=== PATIENT | male | born 1965 | race Caucasian/White ===

== ENCOUNTER 2021-06-23 22:51 | Inpatient (IN) | payer MEDICARE, OTHER ==
[2021-06-23 22:59] LABS: Glucose,Whole Blood 457 mg/dL (75-99)
[2021-06-23] MEDS ORDERED: SODIUM CHLORIDE 0.9% 1,000 ML IV STA (23:00)
--- NOTE | 2021-06-23 23:06 | ED ---
Recheck HPI - General Stated Complaint: sepsis, nstemi Time Seen by Provider: 06/23/21 22:57 Source: RN notes reviewed, old records reviewed Mode of arrival: EMS Limitations: altered mental status - History of Present Illness Initial Comments: this is a 56-year-old male who is a poor shistorian and presents to ER for multiple medicate medical issues. Patient was transferred to us from an outside facility for diabetic ketoacidosis non-ST elevated MS and pneumonia. Again bessie ent cannot provide history history obtained from EMS as well as prior physician MD Complaint: abnormal lab -: unknown Returns Today for: Called Because of Abnormal Lab/Test, persistent/worsening pain related to initial visit Symptoms Since Prior Visit: no new symptoms Associated Symptoms: none Treatments Prior to Arrival: Given Pain Meds on - Related Data Home Medications Medication Instructions Recorded Confirmed Aspirin EC [Ecotrin Low Dose] 81 mg PO DAILY 06/23/21 06/23/21 Cholecalciferol [Vitamin D3 (125 125 mcg PO DAILY 06/23/21 06/23/21 Mcg = 5000 Iu)] Ezetimibe [Zetia] 10 mg PO DAILY 06/23/21 06/23/21 HYDROcodone/APAP 7.5-325MG [[place] 1 tab PO Q6H PRN 06/23/21 06/23/21 7.5-325] Ibuprofen [Motrin] 800 mg PO Q8H PRN 06/23/21 06/23/21 Insulin Aspart 20 - 30 units SQ TID-W/MEALS MDD 06/23/21 06/23/21 90UNITS Insulin Glargine [Lantus Vial] 22 unit SQ HS 06/23/21 06/23/21 Metoprolol Succinate (ER) [Toprol 50 mg PO DAILY PRN 06/23/21 06/23/21 Xl] Rosuvastatin Calcium [Crestor] 40 mg PO DAILY 06/23/21 06/24/21 Allergies Allergy/AdvReac Type Severity Reaction Status Date / Time No Known Allergies Allergy Verified 06/23/21 23:56 Review of Systems ROS Statement: Those systems with pertinent positive or pertinent negative responses have been documented in the HPI. ROS Other: All systems not noted in ROS Statement are negative. General Exam Limitations: altered mental status General appearance: alert, lethargic Head exam: Present: atraumatic, normocephalic, normal inspection Eye exam: Present: normal appearance, PERRL, EOMI. Absent: scleral icterus, conjunctival injection, periorbital swelling ENT exam: Present: normal exam, mucous membranes moist Neck exam: Present: normal inspection. Absent: tenderness, meningismus, lymphadenopathy Respiratory exam: Present: normal lung sounds bilaterally. Absent: respiratory distress, wheezes, rales, rhonchi, stridor Cardiovascular Exam: Present: regular rate, normal rhythm, normal heart sounds. Absent: systolic murmur, diastolic murmur, rubs, gallop, clicks GI/Abdominal exam: Present: soft, normal bowel sounds. Absent: distended, tenderness, guarding, rebound, rigid Extremities exam: Present: normal inspection, full ROM, normal capillary refill. Absent: tenderness, pedal edema, joint swelling, calf tenderness Back exam: Present: normal inspection Neurological exam: Present: alert, oriented X3, CN II-XII intact Psychiatric exam: Present: normal affect, normal mood Skin exam: Present: warm, dry, intact, normal color. Absent: rash Course Vital Signs 06/23/21 06/24/21 22:57 00:00 Temperature 99.1 F Pulse Rate 90 94 Respiratory 18 19 Rate Blood Pressure 134/65 136/70 O2 Sat by Pulse 98 96 Oximetry - Reevaluation(s) Reevaluation #1: 06/24/21 01:23 record is reviewed 06/24/21 01:24 transferring paperwork is also been reviewed Reevaluation #2: 06/24/21 01:24 patient showing no improvement mental status here in the ER Reevaluation #3: 06/24/21 01:24 spoke with patient regarding findings questions answered answered - Consultations Consultation #1: spoke with [facility] who agreed to admit the patient Medical Decision Making - Medical Decision Making 56 male accepted in transfer for multiple issues surrounding DKA elevated troponin pneumonitis on x-ray. Patient be admitted for antibiotics evaluation and further evaluation of DKA and treatment blood sugar. Monitoring of altered mental status - Lab Data Result diagrams: 06/23/21 23:26 06/23/21 23:26 Lab Results 06/23/21 06/23/21 06/23/21 Range/Units 22:58 23:26 23:26 WBC (3.8-10.6) k/uL RBC (4.30-5.90) m/uL Hgb (13.0-17.5) gm/dL Hct (39.0-53.0) % MCV (80.0-100.0) fL MCH (25.0-35.0) pg MCHC (31.0-37.0) g/dL RDW (11.5-15.5) % Plt Count (150-450) k/uL MPV Neutrophils % % Lymphocytes % % Monocytes % % Eosinophils % % Basophils % % Neutrophils # (1.3-7.7) k/uL Lymphocytes # (1.0-4.8) k/uL Monocytes # (0-1.0) k/uL Eosinophils # (0-0.7) k/uL Basophils # (0-0.2) k/uL Hypochromasia PT (9.0-12.0) sec INR (<1.2) APTT (22.0-30.0) sec VBG pH (7.31-7.41) VBG pCO2 (37-51) mmHg VBG HCO3 (24-28) mmol/L Sodium (137-145) mmol/L Potassium (3.5-5.1) mmol/L Chloride (98-107) mmol/L Carbon Dioxide (22-30) mmol/L Anion Gap mmol/L BUN (9-20) mg/dL Creatinine (0.66-1.25) mg/dL Est GFR (CKD-EPI)AfAm (>60 ml/min/1.73 sqM) Est GFR (CKD-EPI)NonAf (>60 ml/min/1.73 sqM) Glucose (74-99) mg/dL POC Glucose (mg/dL) 457 H (75-99) mg/dL POC Glu New Car Inspector ID Kallie Dubon Plasma Lactic Acid Brooks 1.6 (0.7-2.0) mmol/L Calcium (8.4-10.2) mg/dL Phosphorus (2.5-4.5) mg/dL Magnesium (1.6-2.3) mg/dL Total Bilirubin (0.2-1.3) mg/dL AST (17-59) U/L ALT (4-49) U/L Alkaline Phosphatase (38-126) U/L Ammonia 12 (<30) umol/L Troponin I (0.000-0.034) ng/mL NT-Pro-B Natriuret Pep pg/mL Total Protein (6.3-8.2) g/dL Albumin (3.5-5.0) g/dL TSH (0.465-4.680) mIU/L Salicylates mg/dL Urine Opiates Screen Not Detected (NotDetected) Ur Oxycodone Screen Not Detected (NotDetected) Urine Methadone Screen Not Detected (NotDetected) Ur Propoxyphene Screen Not Detected (NotDetected) Acetaminophen ug/mL Ur Barbiturates Screen Not Detected (NotDetected) U Tricyclic Antidepress Not Detected (NotDetected) Ur Phencyclidine Scrn Not Detected (NotDetected) Ur Amphetamines Screen Not Detected (NotDetected) U Methamphetamines Scrn Not Detected (NotDetected) U Benzodiazepines Scrn Not Detected (NotDetected) Urine Cocaine Screen Not Detected (NotDetected) U Marijuana (THC) Screen Not Detected (NotDetected) Serum Alcohol mg/dL Acetone, Qual (Negative) 06/23/21 06/23/21 06/23/21 Range/Units 23:26 23:26 23:26 WBC 16.2 H (3.8-10.6) k/uL RBC 3.68 L (4.30-5.90) m/uL Hgb 11.5 L (13.0-17.5) gm/dL Hct 36.7 L (39.0-53.0) % MCV 99.7 (80.0-100.0) fL MCH 31.2 (25.0-35.0) pg MCHC 31.3 (31.0-37.0) g/dL RDW 13.5 (11.5-15.5) % Plt Count 217 (150-450) k/uL MPV 8.9 Neutrophils % 85 % Lymphocytes % 7 % Monocytes % 7 % Eosinophils % 0 % Basophils % 0 % Neutrophils # 13.8 H (1.3-7.7) k/uL Lymphocytes # 1.1 (1.0-4.8) k/uL Monocytes # 1.1 H (0-1.0) k/uL Eosinophils # 0.0 (0-0.7) k/uL Basophils # 0.0 (0-0.2) k/uL Hypochromasia Slight PT (9.0-12.0) sec INR (<1.2) APTT (22.0-30.0) sec VBG pH 7.39 (7.31-7.41) VBG pCO2 20 L (37-51) mmHg VBG HCO3 12 L (24-28) mmol/L Sodium 137 (137-145) mmol/L Potassium 5.2 H (3.5-5.1) mmol/L Chloride 106 (98-107) mmol/L Carbon Dioxide 9 L* (22-30) mmol/L Anion Gap 22 mmol/L BUN 30 H (9-20) mg/dL Creatinine 1.20 (0.66-1.25) mg/dL Est GFR (CKD-EPI)AfAm 78 (>60 ml/min/1.73 sqM) Est GFR (CKD-EPI)NonAf 68 (>60 ml/min/1.73 sqM) Glucose 459 H (74-99) mg/dL POC Glucose (mg/dL) (75-99) mg/dL POC Glu New Car Inspector ID Plasma Lactic Acid Brooks (0.7-2.0) mmol/L Calcium 9.0 (8.4-10.2) mg/dL Phosphorus 3.9 (2.5-4.5) mg/dL Magnesium 1.9 (1.6-2.3) mg/dL Total Bilirubin 1.1 (0.2-1.3) mg/dL AST 69 H (17-59) U/L ALT 80 H (4-49) U/L Alkaline Phosphatase 73 (38-126) U/L Ammonia (<30) umol/L Troponin I (0.000-0.034) ng/mL NT-Pro-B Natriuret Pep pg/mL Total Protein 7.0 (6.3-8.2) g/dL Albumin 3.9 (3.5-5.0) g/dL TSH 0.235 L (0.465-4.680) mIU/L Salicylates 1.5 mg/dL Urine Opiates Screen (NotDetected) Ur Oxycodone Screen (NotDetected) Urine Methadone Screen (NotDetected) Ur Propoxyphene Screen (NotDetected) Acetaminophen <10.0 ug/mL Ur Barbiturates Screen (NotDetected) U Tricyclic Antidepress (NotDetected) Ur Phencyclidine Scrn (NotDetected) Ur Amphetamines Screen (NotDetected) U Methamphetamines Scrn (NotDetected) U Benzodiazepines Scrn (NotDetected) Urine Cocaine Screen (NotDetected) U Marijuana (THC) Screen (NotDetected) Serum Alcohol <10 mg/dL Acetone, Qual Positive (Negative) 06/23/21 06/23/21 06/23/21 Range/Units 23:26 23:26 23:26 WBC (3.8-10.6) k/uL RBC (4.30-5.90) m/uL Hgb (13.0-17.5) gm/dL Hct (39.0-53.0) % MCV (80.0-100.0) fL MCH (25.0-35.0) pg MCHC (31.0-37.0) g/dL RDW (11.5-15.5) % Plt Count (150-450) k/uL MPV Neutrophils % % Lymphocytes % % Monocytes % % Eosinophils % % Basophils % % Neutrophils # (1.3-7.7) k/uL Lymphocytes # (1.0-4.8) k/uL Monocytes # (0-1.0) k/uL Eosinophils # (0-0.7) k/uL Basophils # (0-0.2) k/uL Hypochromasia PT 12.1 H (9.0-12.0) sec INR 1.1 (<1.2) APTT 23.7 (22.0-30.0) sec VBG pH (7.31-7.41) VBG pCO2 (37-51) mmHg VBG HCO3 (24-28) mmol/L Sodium (137-145) mmol/L Potassium (3.5-5.1) mmol/L Chloride (98-107) mmol/L Carbon Dioxide (22-30) mmol/L Anion Gap mmol/L BUN (9-20) mg/dL Creatinine (0.66-1.25) mg/dL Est GFR (CKD-EPI)AfAm (>60 ml/min/1.73 sqM) Est GFR (CKD-EPI)NonAf (>60 ml/min/1.73 sqM) Glucose (74-99) mg/dL POC Glucose (mg/dL) (75-99) mg/dL POC Glu New Car Inspector ID Plasma Lactic Acid Brooks (0.7-2.0) mmol/L Calcium (8.4-10.2) mg/dL Phosphorus (2.5-4.5) mg/dL Magnesium (1.6-2.3) mg/dL Total Bilirubin (0.2-1.3) mg/dL AST (17-59) U/L ALT (4-49) U/L Alkaline Phosphatase (38-126) U/L Ammonia (<30) umol/L Troponin I 0.143 H* (0.000-0.034) ng/mL NT-Pro-B Natriuret Pep 1990 pg/mL Total Protein (6.3-8.2) g/dL Albumin (3.5-5.0) g/dL TSH (0.465-4.680) mIU/L Salicylates mg/dL Urine Opiates Screen (NotDetected) Ur Oxycodone Screen (NotDetected) Urine Methadone Screen (NotDetected) Ur Propoxyphene Screen (NotDetected) Acetaminophen ug/mL Ur Barbiturates Screen (NotDetected) U Tricyclic Antidepress (NotDetected) Ur Phencyclidine Scrn (NotDetected) Ur Amphetamines Screen (NotDetected) U Methamphetamines Scrn (NotDetected) U Benzodiazepines Scrn (NotDetected) Urine Cocaine Screen (NotDetected) U Marijuana (THC) Screen (NotDetected) Serum Alcohol mg/dL Acetone, Qual (Negative) - EKG Data -: EKG Interpreted by Me (EKG shows sinus 79 IN 108 QRS 86 QTc 433) Critical Care Time Critical Care Time: Yes Total Critical Care Time: 31 Disposition Clinical Impression: Altered mental status, Delirium due to general medical condition, DKA (diabetic ketoacidosis), NSTEMI (non-ST elevated myocardial infarction), Leukocytosis, Pneumonitis Disposition: ADMITTED IP TO THIS HOSP Condition: Serious Is patient prescribed a controlled substance at d/c from ED?: No Referrals: None,Stated [Primary Care Provider] - 1-2 days
[2021-06-23 23:52] LABS: Basophils % (A) 0 %; Eosinophils % (A) 0 %; HCT 36.7 % (39.0-53.0); HGB 11.5 gm/dL (13.0-17.5); Hypochromasia Slight; Lymphocytes # (A) 1.1 k/uL (1.0-4.8); Lymphocytes % (A) 7 %; MCH 31.2 pg (25.0-35.0); MCHC 31.3 g/dL (31.0-37.0); MCV 99.7 fL (80.0-100.0); Mean Platelet Volume 8.9; Monocytes # (A) 1.1 k/uL (0-1.0); Monocytes % (A) 7 %; Neutrophils # (A) 13.8 k/uL (1.3-7.7); Neutrophils % (A) 85 %; Platelet Count 217 k/uL (150-450); RBC 3.68 m/uL (4.30-5.90); RDW 13.5 % (11.5-15.5); WBC 16.2 k/uL (3.8-10.6)
[2021-06-23 23:54] LABS: VBG PH 7.39 (7.31-7.41)
[2021-06-24 00:03] LABS: INR 1.1 (<1.2); Partial Thromboplastin Time 23.7 sec (22.0-30.0); Prothrombin Time 12.1 sec (9.0-12.0)
[2021-06-24 00:11] LABS: Amphetamine Screen,Urine Not Detected (NotDetected); Barbiturate Screen,Urine Not Detected (NotDetected); Benzodiazepines Screen,Urine Not Detected (NotDetected); Cocaine Screen,Urine Not Detected (NotDetected); Methadone Screen, Urine Not Detected (NotDetected); Opiate Screen,Urine Not Detected (NotDetected); Oxycodone Screen, Urine Not Detected (NotDetected); Phencyclidine Screen,Urine Not Detected (NotDetected); Tricyclic Antidepressant,Urine Not Detected (NotDetected); Urn Cannabinoid Scrn Not Detected (NotDetected)
[2021-06-24 00:36] LABS: Lactic Acid, Venous 1.6 mmol/L (0.7-2.0)
[2021-06-24 00:39] LABS: ALT 80 U/L (4-49); AST 69 U/L (17-59); Acetaminophen <10.0 ug/mL; African American GFR (CKD) 78 (>60 ml/min/1.73 sqM); Albumin 3.9 g/dL (3.5-5.0); Alcohol <10 mg/dL; Alkaline Phosphatase 73 U/L (38-126); Anion Gap 22 mmol/L; Blood Urea Nitrogen 30 mg/dL (9-20); Chloride 106 mmol/L (98-107); Glucose 459 mg/dL (74-99); Magnesium 1.9 mg/dL (1.6-2.3); Non-African American GFR(CKD) 68 (>60 ml/min/1.73 sqM); Phosphorus 3.9 mg/dL (2.5-4.5); Potassium 5.2 mmol/L (3.5-5.1); Salicylate 1.5 mg/dL; Sodium 137 mmol/L (137-145); Total Bilirubin 1.1 mg/dL (0.2-1.3)
[2021-06-24 00:45] LABS: Carbon Dioxide 9 mmol/L (22-30)
[2021-06-24] MEDS ORDERED: NALOXONE 0.4 MG/ML 1 ML VIAL IV PRN (01:18)
[2021-06-24] MEDS ORDERED: SODIUM CHLORIDE 0.9% 1,000 ML IV ONE (01:18)
[2021-06-24] MEDS ORDERED: LORazepam 2 MG/ML INJ IV PRN (01:18)
[2021-06-24] MEDS ORDERED: MORPHINE SULFATE 4 MG/ML SYRINGE IV PRN (01:18)
[2021-06-24] MEDS ORDERED: INSULIN REGULAR 100 UNIT in SODIUM CHLORIDE 0.9% 100 ML IV SCH (01:30)
--- NOTE | 2021-06-24 02:34 | CT ---
EXAMINATION TYPE: CT brain wo con DATE OF EXAM: 06/24/2021 COMPARISON: None HISTORY: ams CT DLP: 1214.4 mGycm Automated exposure control for dose reduction was used. Images obtained of the brain without contrast. There is mild cerebral atrophy. There is no mass effect or midline shift. There is no sign of intracr anial hemorrhage. Calvarium is intact. IMPRESSION: Mild atrophy. No acute intracranial abnormality. Mild ethmoid and frontal sinusitis noted.
[2021-06-24 03:26] LABS: Glucose,Whole Blood 371 mg/dL (75-99)
[2021-06-24] MEDS: SODIUM CHLORIDE 0.9% 1,000 ML IV SCH ×3 (04:04→12:37)
[2021-06-24 04:33] LABS: Glucose,Whole Blood 318 mg/dL (75-99)
[2021-06-24 05:24] LABS: Glucose,Whole Blood 302 mg/dL (75-99)
[2021-06-24 06:24] LABS: Glucose,Whole Blood 302 mg/dL (75-99)
[2021-06-24 07:50] LABS: Glucose,Whole Blood 240 mg/dL (75-99)
[2021-06-24 08:58] LABS: African American GFR (CKD) >90 (>60 ml/min/1.73 sqM); Anion Gap 13 mmol/L; Blood Urea Nitrogen 27 mg/dL (9-20); Carbon Dioxide 11 mmol/L (22-30); Chloride 117 mmol/L (98-107); Glucose 281 mg/dL (74-99); Non-African American GFR(CKD) 84 (>60 ml/min/1.73 sqM); Phosphorus 2.7 mg/dL (2.5-4.5); Potassium 4.9 mmol/L (3.5-5.1); Sodium 141 mmol/L (137-145)
[2021-06-24] MEDS ORDERED: AZITHROMYCIN 500 MG in SODIUM CHLORIDE 0.9% 250 ML IVPB SCH (09:00)
[2021-06-24] MEDS ORDERED: D5-0.45% NACL WITH KCL 20MEQ/L 1,000 ML IV SCH (09:00)
[2021-06-24] MEDS: PANTOPRAZOLE 40 MG/10 ML VIAL IV SCH (09:14)
[2021-06-24 09:30] LABS: Glucose,Whole Blood 229 mg/dL (75-99)
--- NOTE | 2021-06-24 10:11 | P.HPIM ---
History of Present Illness Patient is a 56-year-old male was transferred from a outside hospital as patient doesn't they're unresponsive. Patient is found to be not diverticulitis doses. Patient urine drug screen was negative and alcohol levels are negative. Patient was started on IV fluids were started on DKA protocol patient was in anion gap is 13. Patient the slowly became more responsive and I valid the patient patient although is alert oriented 1 able to answer my questions he thinks that it's 2001, able to tell me his name. Patient is not sure why he is in the hospital. Patient was severely encephalopathic when he came in. CT of the head did not show any acute abnormality. Patient also had mildly elevated troponins of 0.147 0.109 with mildly elevated liver enzymes. Patient is on insulin for diabetes mellitus. TSH is bit low at 0.235 patient does have leukocytosis. Patient initially was thought to have pneumonia although chest x-ray did not show any infiltrate. I will obtain a pro-calcitonin wasn't a do not believe patient will need antibiotics patient doesn't have any cough. REVIEW OF SYSTEMS: CONSTITUTIONAL: No fever, no malaise, no fatigue. HEENT: No recent visual problems or hearing problems. Denied any sore throat. CARDIOVASCULAR: No chest pain, orthopnea, PND, no palpitations, no syncope. PULMONARY: No shortness of breath, no cough, no hemoptysis. GASTROINTESTINAL: No diarrhea, no nausea, no vomiting, no abdominal pain. NEUROLOGICAL: No headaches, no weakness, no numbness. HEMATOLOGICAL: Denies any bleeding or petechiae. GENITOURINARY: Denies any burning micturition, frequency, or urgency. MUSCULOSKELETAL/RHEUMATOLOGICAL: Denies any joint pain, swelling, or any muscle pain. ENDOCRINE: Denies any polyuria or polydipsia. The rest of the 14-point review of systems is negative. PHYSICAL EXAMINATION: GENERAL: The patient is alert and oriented x1, not in any acute distress. Well developed, well nourished. HEENT: Pupils are round and equally reacting to light. EOMI. No scleral icterus. No conjunctival pallor. Normocephalic, atraumatic. No pharyngeal erythema. No thyromegaly. CARDIOVASCULAR: S1 and S2 present. No murmurs, rubs, or gallops. PULMONARY: Chest is clear to auscultation, no wheezing or crackles. ABDOMEN: Soft, nontender, nondistended, normoactive bowel sounds. No palpable organomegaly. MUSCULOSKELETAL: No joint swelling or deformity. EXTREMITIES: No cyanosis, clubbing, or pedal edema. NEUROLOGICAL: Gross neurological examination did not reveal any focal deficits. SKIN: No rashes. Assessment and plan -Acute a different secondary to diabetic ketoacidosis this is improving ketoacidosis improved -Diverticular acidosis patient is insulin-dependent unsure whether elevated the patient is type I-type II. Patient's anion gap almost resolved patient bicarbonate is still low because of hyperchloremia. Patient will be transitioned to subcutaneous insulin patient will be given a dose of long-acting insulin followed by disc herniation of IV insulin an hour later patient will be started on pre-meal insulin as well as sliding scale patient can need to an hour after transitioning to subcutaneous insulin. Patient will be transitioned to half-normal saline. -Metabolic acidosis: Secondary to lactic acidosis, which improved which is again secondary to intravascular depletion and dehydration, diabetic ketoacidosis, hyperchloremia secondary to IV fluids. -Mildly elevated troponins secondary to diabetic ketoacidosis patient doesn't have any chest pain patient's EKG is within normal limits -Acute renal failure secondary to DKA dehydration -low TSH will obtain T4 levels -leukocytosis secondary to diabetic ketoacidosis 7 hypertension is really not on any medication patient is only on when necessary medication for hypertension which I will discontinue at this time DVT prophylaxis: Lovenox Past Medical History Past Medical History: Unable to Obtain History of Any Multi-Drug Resistant Organisms: Unobtainable Past Surgical History: Unable to Obtain Past Psychological History: Unable to Obtain Smoking Status: Unknown if ever smoked Past Alcohol Use History: Unable to Obtain Past Drug Use History: Unable to Obtain Medications and Allergies Home Medications Medication Instructions Recorded Confirmed Type Aspirin EC [Ecotrin Low Dose] 81 mg PO DAILY 06/23/21 06/23/21 History Cholecalciferol [Vitamin D3 (125 125 mcg PO DAILY 06/23/21 06/23/21 History Mcg = 5000 Iu)] Ezetimibe [Zetia] 10 mg PO DAILY 06/23/21 06/23/21 History HYDROcodone/APAP 7.5-325MG [[place] 1 tab PO Q6H PRN 06/23/21 06/23/21 History 7.5-325] Ibuprofen [Motrin] 800 mg PO Q8H PRN 06/23/21 06/23/21 History Insulin Aspart 20 - 30 units SQ TID-W/MEALS MDD 06/23/21 06/23/21 History 90UNITS Insulin Glargine [Lantus Vial] 22 unit SQ HS 06/23/21 06/23/21 History Metoprolol Succinate (ER) [Toprol 50 mg PO DAILY PRN 06/23/21 06/23/21 History Xl] Rosuvastatin Calcium [Crestor] 40 mg PO DAILY 06/23/21 06/24/21 History Allergies Allergy/AdvReac Type Severity Reaction Status Date / Time No Known Allergies Allergy Verified 06/23/21 23:56 Physical Exam Vitals: Vital Signs Temp Pulse Resp BP Pulse Ox 06/24/21 09:00 92 118/54 93 L 06/24/21 08:00 91 132/66 100 06/24/21 06:00 92 14 137/70 100 06/24/21 05:00 95 14 119/57 98 06/24/21 04:00 91 18 127/59 97 06/24/21 03:00 88 18 136/64 97 06/24/21 02:00 85 18 118/48 96 06/24/21 01:23 98.1 F 88 13 117/64 96 06/24/21 01:20 93 8 L 117/64 96 06/24/21 00:00 94 19 136/70 96 06/23/21 22:57 99.1 F 90 18 134/65 98 Intake and Output 06/23/21 06/24/21 06/24/21 22:59 06:59 14:59 Other: Weight 80.739 kg Results CBC & Chem 7: 06/23/21 23:26 06/24/21 08:35 Labs: Abnormal Lab Results - Last 24 Hours (Table) 06/23/21 06/23/21 06/23/21 Range/Units 22:58 23:26 23:26 WBC (3.8-10.6) k/uL RBC (4.30-5.90) m/uL Hgb (13.0-17.5) gm/dL Hct (39.0-53.0) % Neutrophils # (1.3-7.7) k/uL Monocytes # (0-1.0) k/uL PT (9.0-12.0) sec VBG pCO2 20 L (37-51) mmHg VBG HCO3 12 L (24-28) mmol/L Potassium 5.2 H (3.5-5.1) mmol/L Chloride (98-107) mmol/L Carbon Dioxide 9 L* (22-30) mmol/L BUN 30 H (9-20) mg/dL Glucose 459 H (74-99) mg/dL POC Glucose (mg/dL) 457 H (75-99) mg/dL AST 69 H (17-59) U/L ALT 80 H (4-49) U/L Troponin I (0.000-0.034) ng/mL TSH 0.235 L (0.465-4.680) mIU/L 06/23/21 06/23/21 06/23/21 Range/Units 23:26 23:26 23:26 WBC 16.2 H (3.8-10.6) k/uL RBC 3.68 L (4.30-5.90) m/uL Hgb 11.5 L (13.0-17.5) gm/dL Hct 36.7 L (39.0-53.0) % Neutrophils # 13.8 H (1.3-7.7) k/uL Monocytes # 1.1 H (0-1.0) k/uL PT 12.1 H (9.0-12.0) sec VBG pCO2 (37-51) mmHg VBG HCO3 (24-28) mmol/L Potassium (3.5-5.1) mmol/L Chloride (98-107) mmol/L Carbon Dioxide (22-30) mmol/L BUN (9-20) mg/dL Glucose (74-99) mg/dL POC Glucose (mg/dL) (75-99) mg/dL AST (17-59) U/L ALT (4-49) U/L Troponin I 0.143 H* (0.000-0.034) ng/mL TSH (0.465-4.680) mIU/L 06/24/21 06/24/21 06/24/21 Range/Units 03:24 04:07 04:17 WBC (3.8-10.6) k/uL RBC (4.30-5.90) m/uL Hgb (13.0-17.5) gm/dL Hct (39.0-53.0) % Neutrophils # (1.3-7.7) k/uL Monocytes # (0-1.0) k/uL PT (9.0-12.0) sec VBG pCO2 (37-51) mmHg VBG HCO3 (24-28) mmol/L Potassium (3.5-5.1) mmol/L Chloride 112 H (98-107) mmol/L Carbon Dioxide 9 L* (22-30) mmol/L BUN 30 H (9-20) mg/dL Glucose 353 H (74-99) mg/dL POC Glucose (mg/dL) 371 H (75-99) mg/dL AST (17-59) U/L ALT (4-49) U/L Troponin I 0.147 H* (0.000-0.034) ng/mL TSH (0.465-4.680) mIU/L 06/24/21 06/24/21 06/24/21 Range/Units 04:32 05:22 06:22 WBC (3.8-10.6) k/uL RBC (4.30-5.90) m/uL Hgb (13.0-17.5) gm/dL Hct (39.0-53.0) % Neutrophils # (1.3-7.7) k/uL Monocytes # (0-1.0) k/uL PT (9.0-12.0) sec VBG pCO2 (37-51) mmHg VBG HCO3 (24-28) mmol/L Potassium (3.5-5.1) mmol/L Chloride (98-107) mmol/L Carbon Dioxide (22-30) mmol/L BUN (9-20) mg/dL Glucose (74-99) mg/dL POC Glucose (mg/dL) 318 H 302 H 302 H (75-99) mg/dL AST (17-59) U/L ALT (4-49) U/L Troponin I (0.000-0.034) ng/mL TSH (0.465-4.680) mIU/L 06/24/21 06/24/21 06/24/21 Range/Units 07:42 08:10 08:35 WBC (3.8-10.6) k/uL RBC (4.30-5.90) m/uL Hgb (13.0-17.5) gm/dL Hct (39.0-53.0) % Neutrophils # (1.3-7.7) k/uL Monocytes # (0-1.0) k/uL PT (9.0-12.0) sec VBG pCO2 (37-51) mmHg VBG HCO3 (24-28) mmol/L Potassium (3.5-5.1) mmol/L Chloride 117 H (98-107) mmol/L Carbon Dioxide 11 L (22-30) mmol/L BUN 27 H (9-20) mg/dL Glucose 281 H (74-99) mg/dL POC Glucose (mg/dL) 240 H (75-99) mg/dL AST (17-59) U/L ALT (4-49) U/L Troponin I 0.109 H* (0.000-0.034) ng/mL TSH (0.465-4.680) mIU/L 06/24/21 Range/Units 09:28 WBC (3.8-10.6) k/uL RBC (4.30-5.90) m/uL Hgb (13.0-17.5) gm/dL Hct (39.0-53.0) % Neutrophils # (1.3-7.7) k/uL Monocytes # (0-1.0) k/uL PT (9.0-12.0) sec VBG pCO2 (37-51) mmHg VBG HCO3 (24-28) mmol/L Potassium (3.5-5.1) mmol/L Chloride (98-107) mmol/L Carbon Dioxide (22-30) mmol/L BUN (9-20) mg/dL Glucose (74-99) mg/dL POC Glucose (mg/dL) 229 H (75-99) mg/dL AST (17-59) U/L ALT (4-49) U/L Troponin I (0.000-0.034) ng/mL TSH (0.465-4.680) mIU/L
[2021-06-24] MEDS ORDERED: INSULIN DETEMIR (LEVEMIR) 100 UNIT/ML SYR SQ ONE (10:15)
[2021-06-24 10:36] LABS: Glucose,Whole Blood 218 mg/dL (75-99)
[2021-06-24 11:50] LABS: Glucose,Whole Blood 205 mg/dL (75-99)
[2021-06-24] MEDS: INSULIN ASPART (NovoLOG) 100 UNIT/ML VIAL SQ SCH ×6 (13:27→20:48)
[2021-06-24 13:28] LABS: Glucose,Whole Blood 174 mg/dL (75-99)
[2021-06-24] MEDS: SODIUM CHLORIDE 0.45% 1,000 ML IV SCH (15:02)
[2021-06-24] MEDS ORDERED: DEXTROSE 50% SYRINGE 50 ML IVP ONE (16:49)
[2021-06-24 16:51] LABS: Glucose,Whole Blood 31 mg/dL (75-99)
[2021-06-24 16:51] LABS: Glucose,Whole Blood 36 mg/dL (75-99)
[2021-06-24 17:08] LABS: Glucose,Whole Blood 33 mg/dL (75-99)
[2021-06-24] MEDS ORDERED: DEXTROSE 50% SYRINGE 50 ML IVP STA (17:15)
[2021-06-24 17:29] LABS: Glucose,Whole Blood 108 mg/dL (75-99)
[2021-06-24 18:31] LABS: Glucose,Whole Blood 102 mg/dL (75-99)
[2021-06-24] MEDS: DEXTROSE 5%-0.45% NACL 1,000 ML IV SCH (18:52)
[2021-06-24 19:45] LABS: Glucose,Whole Blood 100 mg/dL (75-99)
[2021-06-24 20:59] LABS: African American GFR (CKD) >90 (>60 ml/min/1.73 sqM); Anion Gap 7 mmol/L; Blood Urea Nitrogen 24 mg/dL (9-20); Carbon Dioxide 22 mmol/L (22-30); Chloride 115 mmol/L (98-107); Glucose 99 mg/dL (74-99); Non-African American GFR(CKD) >90 (>60 ml/min/1.73 sqM); Sodium 144 mmol/L (137-145)
[2021-06-24 21:18] LABS: Glucose,Whole Blood 103 mg/dL (75-99)
[2021-06-24 23:29] LABS: Glucose,Whole Blood 120 mg/dL (75-99)
[2021-06-25 01:35] LABS: Glucose,Whole Blood 125 mg/dL (75-99)
[2021-06-25 05:52] LABS: Glucose,Whole Blood 185 mg/dL (75-99)
[2021-06-25] MEDS: INSULIN ASPART (NovoLOG) 100 UNIT/ML VIAL SQ SCH ×7 (06:50→22:17)
[2021-06-25] MEDS: DEXTROSE 5%-0.45% NACL 1,000 ML IV SCH ×2 (06:51→11:01)
[2021-06-25] MEDS: SODIUM CHLORIDE 0.45% 1,000 ML IV SCH ×3 (06:51→15:02)
[2021-06-25] MEDS ORDERED: INSULIN DETEMIR (LEVEMIR) 100 UNIT/ML SYR SQ SCH ×2 (07:00)
[2021-06-25] MEDS: PANTOPRAZOLE 40 MG/10 ML VIAL IV SCH ×2 (08:55→22:18)
[2021-06-25 09:17] LABS: Basophils % (A) 0 %; Eosinophils # (A) 0.1 k/uL (0-0.7); Eosinophils % (A) 1 %; HGB 11.6 gm/dL (13.0-17.5); Lymphocytes % (A) 9 %; MCH 31.9 pg (25.0-35.0); MCHC 34.3 g/dL (31.0-37.0); Mean Platelet Volume 8.8; Monocytes % (A) 9 %; Neutrophils # (A) 9.3 k/uL (1.3-7.7); Neutrophils % (A) 81 %; Platelet Count 208 k/uL (150-450); RBC 3.65 m/uL (4.30-5.90); RDW 12.8 % (11.5-15.5); WBC 11.5 k/uL (3.8-10.6)
[2021-06-25 09:30] LABS: MCV 93.1 fL (80.0-100.0)
[2021-06-25 09:34] LABS: Glucose,Whole Blood 209 mg/dL (75-99)
[2021-06-25 09:40] LABS: ALT 77 U/L (4-49); AST 81 U/L (17-59); African American GFR (CKD) >90 (>60 ml/min/1.73 sqM); Albumin 3.4 g/dL (3.5-5.0); Alkaline Phosphatase 63 U/L (38-126); Anion Gap 7 mmol/L; Blood Urea Nitrogen 15 mg/dL (9-20); Calcium 8.6 mg/dL (8.4-10.2); Carbon Dioxide 24 mmol/L (22-30); Chloride 107 mmol/L (98-107); Glucose 212 mg/dL (74-99); Magnesium 1.8 mg/dL (1.6-2.3); Non-African American GFR(CKD) >90 (>60 ml/min/1.73 sqM); Phosphorus 2.4 mg/dL (2.5-4.5); Potassium 3.5 mmol/L (3.5-5.1); Sodium 138 mmol/L (137-145); Total Bilirubin 0.9 mg/dL (0.2-1.3); Total Protein 6.8 g/dL (6.3-8.2)
[2021-06-25] MEDS ORDERED: ONDANSETRON 4 MG/2 ML VIAL IVP PRN (10:15)
[2021-06-25] MEDS ORDERED: Potassium Replacement Protocol 1 EACH MISC MISCELLANE PRN (10:20)
--- NOTE | 2021-06-25 10:21 | P.PN ---
Subjective Patient is a 56-year-old male was transferred from a outside hospital as patient doesn't they're unresponsive. Patient is found to be not diverticulitis doses. Patient urine drug screen was negative and alcohol levels are negative. Patient was started on IV fluids were started on DKA protocol patient was in anion gap is 13. Patient the slowly became more responsive and I valid the patient patient although is alert oriented 1 able to answer my questions he thinks that it's 2001, able to tell me his name. Patient is not sure why he is in the hospital. Patient was severely encephalopathic when he came in. CT of the head did not show any acute abnormality. Patient also had mildly elevated troponins of 0.147 0.109 with mildly elevated liver enzymes. Patient is on insulin for diabetes mellitus. TSH is bit low at 0.235 patient does have leukocytosis. Patient initially was thought to have pneumonia although chest x-ray did not show any infiltrate. I will obtain a pro-calcitonin wasn't a do not believe patient will need antibiotics patient doesn't have any cough. 06/25/2021 Patient looks much better today able to answer my questions very well and patient is alert oriented 3 today still having nausea is comparing of some abdominal discomfort we'll obtain abdominal x-ray patient's of Protonix will be changed to twice a day as well as the patient was started on Zofran patient was hypoglycemic was on D5W earlier. We'll cut down the Levemir to 10 units from 35 units, patient is presently nothing by mouth speech therapy will be consulted with the concerns of swallowing issues and aspiration. Patient doesn't have any pneumonia at this time will discontinue Rocephin. Constitutional: Denied any fatigue denied any fever. Cardio vascular: denied any chest pain, palpitations Gastrointestinal as mentioned in the interval history Pulmonary: Denied any shortness of breath cough Neurologic denied any new focal deficits All inpatient medications were reviewed and appropriate changes in these medications as dictated in the interval history and assessment and plan. PHYSICAL EXAMINATION: GENERAL: The patient is alert and oriented x3, not in any acute distress. Well developed, well nourished. HEENT: Pupils are round and equally reacting to light. EOMI. No scleral icterus. No conjunctival pallor. Normocephalic, atraumatic. No pharyngeal erythema. No thyromegaly. CARDIOVASCULAR: S1 and S2 present. No murmurs, rubs, or gallops. PULMONARY: Chest is clear to auscultation, no wheezing or crackles. ABDOMEN: Soft, nontender, nondistended, normoactive bowel sounds. No palpable organomegaly. MUSCULOSKELETAL: No joint swelling or deformity. EXTREMITIES: No cyanosis, clubbing, or pedal edema. NEUROLOGICAL: Gross neurological examination did not reveal any focal deficits. SKIN: No rashes. Assessment and plan -Acutemetabolic encephalopathy secondary to diabetic ketoacidosis this is improving ketoacidosis improved -Diabetic ketoacidosis s patient is insulin-dependent unsure whether elevated th e patient is type I-type II. Ketoacidosis resolved patient is not eating because of which patient is hypoglycemic as mentioned above will cut on long- acting insulin to 10 units and use sliding scale for elevated blood sugars patient will be evaluated by speech therapy for issues of dysphagia. -Metabolic acidosis: Secondary to lactic acidosis, which improved which is again secondary to intravascular depletion and dehydration, diabetic ketoacidosis, hyperchloremia secondary to IV fluids. -Mildly elevated troponins secondary to diabetic ketoacidosis patient doesn't have any chest pain patient's EKG is within normal limits -And medics will discuss reviewed there is no evidence of pneumonia even on admission. Leukocytosis is secondary to ketoacidosis -Acute renal failure secondary to DKA dehydration -low TSH will obtain T4 levels -leukocytosis secondary to diabetic ketoacidosis 7 hypertension is really not on any medication patient is only on when necessary medication for hypertension which I will discontinue at this time DVT prophylaxis: Lovenox Objective - Vital Signs Vital signs: Vital Signs Temp 99.7 F H 06/25/21 04:00 Pulse 89 06/25/21 04:00 Resp 16 06/25/21 04:00 BP 131/77 06/25/21 04:00 Pulse Ox 97 06/25/21 04:00 Intake & Output 06/24/21 06/25/21 06/25/21 18:59 06:59 18:59 Intake Total 0 Balance 0 Weight 80.739 kg Intake: Oral 0 Other: Voiding Method Indwelling Catheter Indwelling Catheter - Labs CBC & Chem 7: 06/25/21 08:28 06/25/21 08:28 Labs: Abnormal Lab Results - Last 24 Hours (Table) 06/23/21 06/24/21 06/24/21 Range/Units 23:26 10:32 11:44 WBC (3.8-10.6) k/uL RBC (4.30-5.90) m/uL Hgb (13.0-17.5) gm/dL Hct (39.0-53.0) % Neutrophils # (1.3-7.7) k/uL Chloride (98-107) mmol/L BUN (9-20) mg/dL Glucose (74-99) mg/dL POC Glucose (mg/dL) 218 H 205 H (75-99) mg/dL Phosphorus (2.5-4.5) mg/dL AST (17-59) U/L ALT (4-49) U/L Albumin (3.5-5.0) g/dL Procalcitonin 0.59 H (0.02-0.09) ng/mL 06/24/21 06/24/21 06/24/21 Range/Units 13:23 16:48 16:49 WBC (3.8-10.6) k/uL RBC (4.30-5.90) m/uL Hgb (13.0-17.5) gm/dL Hct (39.0-53.0) % Neutrophils # (1.3-7.7) k/uL Chloride (98-107) mmol/L BUN (9-20) mg/dL Glucose (74-99) mg/dL POC Glucose (mg/dL) 174 H 31 L 36 L (75-99) mg/dL Phosphorus (2.5-4.5) mg/dL AST (17-59) U/L ALT (4-49) U/L Albumin (3.5-5.0) g/dL Procalcitonin (0.02-0.09) ng/mL 06/24/21 06/24/21 06/24/21 Range/Units 17:07 17:27 18:29 WBC (3.8-10.6) k/uL RBC (4.30-5.90) m/uL Hgb (13.0-17.5) gm/dL Hct (39.0-53.0) % Neutrophils # (1.3-7.7) k/uL Chloride (98-107) mmol/L BUN (9-20) mg/dL Glucose (74-99) mg/dL POC Glucose (mg/dL) 33 L 108 H 102 H (75-99) mg/dL Phosphorus (2.5-4.5) mg/dL AST (17-59) U/L ALT (4-49) U/L Albumin (3.5-5.0) g/dL Procalcitonin (0.02-0.09) ng/mL 06/24/21 06/24/21 06/24/21 Range/Units 19:35 20:14 20:58 WBC (3.8-10.6) k/uL RBC (4.30-5.90) m/uL Hgb (13.0-17.5) gm/dL Hct (39.0-53.0) % Neutrophils # (1.3-7.7) k/uL Chloride 115 H (98-107) mmol/L BUN 24 H (9-20) mg/dL Glucose (74-99) mg/dL POC Glucose (mg/dL) 100 H 103 H (75-99) mg/dL Phosphorus (2.5-4.5) mg/dL AST (17-59) U/L ALT (4-49) U/L Albumin (3.5-5.0) g/dL Procalcitonin (0.02-0.09) ng/mL 06/24/21 06/25/21 06/25/21 Range/Units 23:27 01:33 05:49 WBC (3.8-10.6) k/uL RBC (4.30-5.90) m/uL Hgb (13.0-17.5) gm/dL Hct (39.0-53.0) % Neutrophils # (1.3-7.7) k/uL Chloride (98-107) mmol/L BUN (9-20) mg/dL Glucose (74-99) mg/dL POC Glucose (mg/dL) 120 H 125 H 185 H (75-99) mg/dL Phosphorus (2.5-4.5) mg/dL AST (17-59) U/L ALT (4-49) U/L Albumin (3.5-5.0) g/dL Procalcitonin (0.02-0.09) ng/mL 06/25/21 06/25/21 06/25/21 Range/Units 08:28 08:28 09:32 WBC 11.5 H (3.8-10.6) k/uL RBC 3.65 L (4.30-5.90) m/uL Hgb 11.6 L (13.0-17.5) gm/dL Hct 34.0 L (39.0-53.0) % Neutrophils # 9.3 H (1.3-7.7) k/uL Chloride (98-107) mmol/L BUN (9-20) mg/dL Glucose 212 H (74-99) mg/dL POC Glucose (mg/dL) 209 H (75-99) mg/dL Phosphorus 2.4 L (2.5-4.5) mg/dL AST 81 H (17-59) U/L ALT 77 H (4-49) U/L Albumin 3.4 L (3.5-5.0) g/dL Procalcitonin (0.02-0.09) ng/mL
[2021-06-25] MEDS: ATORVASTATIN 80 MG TAB PO SCH (10:22)
[2021-06-25] MEDS: ASPIRIN 81 MG PO SCH (10:22)
[2021-06-25] MEDS: EZETIMIBE 10 MG TAB PO SCH (10:23)
[2021-06-25] MEDS: POTASSIUM CHLORIDE 10 MEQ in WATER FOR INJECTION 1 100ML.BAG IVPB SCH ×4 (11:01→16:51)
--- NOTE | 2021-06-25 11:23 | XR ---
EXAMINATION TYPE: XR chest 2V DATE OF EXAM: 06/25/2021 COMPARISON: NONE HISTORY: Shortness of breath TECHNIQUE: Frontal and lateral views of the chest are obtained. FINDINGS: Scattered senescent parenchymal changes noted. Hyperinflation compatible with COPD. No evidence for infiltrate. Right basilar discoid atelectasis. Heart size is stable. Mediastinal structures are stable and grossly unremarkable. No evidence for hilar prominence. Degenerative changes dorsal spine. IMPRESSION: 1. No evidence for acute pulmonary disease.
[2021-06-25 11:29] LABS: Glucose,Whole Blood 226 mg/dL (75-99)
[2021-06-25 13:27] LABS: Appearance,Urine Clear (Clear); Bilirubin,Urine Negative (Negative); Blood,Urine Trace (Negative); Color,Urine Yellow; Glucose,Urine (UA) 4+ (Negative); Ketones,Urine 1+ (Negative); Leukocyte Esterase,Urine Negative (Negative); Mucus,Urine Rare /hpf; Nitrite,Urine Negative (Negative); Protein,Urine Negative (Negative); RBC,Urine 7 /hpf (0-5); Squamous Epithelial Cell,Urine <1 /hpf (0-4); Urobilinogen,Urine <2.0 mg/dL (<2.0); WBC,Urine 1 /hpf (0-5)
[2021-06-25 16:37] LABS: Glucose,Whole Blood 259 mg/dL (75-99)
[2021-06-25 19:39] LABS: Glucose,Whole Blood 183 mg/dL (75-99)
[2021-06-26 05:27] LABS: Glucose,Whole Blood 366 mg/dL (75-99)
[2021-06-26] MEDS: INSULIN ASPART (NovoLOG) 100 UNIT/ML VIAL SQ SCH ×9 (06:36→20:42)
[2021-06-26] MEDS ORDERED: INSULIN DETEMIR (LEVEMIR) 100 UNIT/ML SYR SQ SCH (07:00)
[2021-06-26 08:35] LABS: HCT 35.7 % (39.0-53.0); MCH 32.2 pg (25.0-35.0); MCHC 33.7 g/dL (31.0-37.0); MCV 95.4 fL (80.0-100.0); Mean Platelet Volume 8.7; Platelet Count 221 k/uL (150-450); RBC 3.74 m/uL (4.30-5.90); RDW 13.1 % (11.5-15.5); WBC 8.6 k/uL (3.8-10.6)
[2021-06-26 08:42] LABS: African American GFR (CKD) >90 (>60 ml/min/1.73 sqM); Anion Gap 11 mmol/L; Blood Urea Nitrogen 21 mg/dL (9-20); Calcium 8.9 mg/dL (8.4-10.2); Carbon Dioxide 21 mmol/L (22-30); Chloride 104 mmol/L (98-107); Glucose 333 mg/dL (74-99); Magnesium 1.9 mg/dL (1.6-2.3); Non-African American GFR(CKD) >90 (>60 ml/min/1.73 sqM); Potassium 3.6 mmol/L (3.5-5.1); Sodium 136 mmol/L (137-145)
[2021-06-26] MEDS: ASPIRIN 81 MG PO SCH (08:47)
[2021-06-26] MEDS: PANTOPRAZOLE 40 MG/10 ML VIAL IV SCH ×2 (08:47→20:42)
[2021-06-26] MEDS: EZETIMIBE 10 MG TAB PO SCH (08:47)
[2021-06-26] MEDS: ATORVASTATIN 80 MG TAB PO SCH (08:48)
[2021-06-26] MEDS: SODIUM CHLORIDE 0.45% 1,000 ML IV SCH ×2 (08:48→17:51)
[2021-06-26 11:49] LABS: Glucose,Whole Blood 219 mg/dL (75-99)
[2021-06-26 12:53] VITALS: BMI 24.1
[2021-06-26] MEDS ORDERED: POTASSIUM CHLORIDE ER 20 MEQ TAB.ER PO STA (15:27)
--- NOTE | 2021-06-26 15:46 | P.PN ---
Subjective Progress Note Date: 06/26/21 Patient is a 56-year-old male was transferred from a outside hospital as patient doesn't they're unresponsive. Patient is found to be not diverticulitis doses. Patient urine drug screen was negative and alcohol levels are negative. Patient was started on IV fluids were started on DKA protocol patient was in anion gap is 13. Patient the slowly became more responsive and I valid the patient p atient although is alert oriented 1 able to answer my questions he thinks that it's 2001, able to tell me his name. Patient is not sure why he is in the hospital. Patient was severely encephalopathic when he came in. CT of the head did not show any acute abnormality. Patient also had mildly elevated troponins of 0.147 0.109 with mildly elevated liver enzymes. Patient is on insulin for diabetes mellitus. TSH is bit low at 0.235 patient does have leukocytosis. Patient initially was thought to have pneumonia although chest x-ray did not show any infiltrate. I will obtain a pro-calcitonin wasn't a do not believe patient will need antibiotics patient doesn't have any cough. 06/25/2021 Patient looks much better today able to answer my questions very well and patient is alert oriented 3 today still having nausea is comparing of some abdominal discomfort we'll obtain abdominal x-ray patient's of Protonix will be changed to twice a day as well as the patient was started on Zofran patient was hypoglycemic was on D5W earlier. We'll cut down the Levemir to 10 units from 35 units, patient is presently nothing by mouth speech therapy will be consulted with the concerns of swallowing issues and aspiration. Patient doesn't have any pneumonia at this time will discontinue Rocephin. 06/26/2021 Patient evaluated today resting in bed, is alert and oriented 3. We will discontinue patient's Torres catheter. Patient denies any chest pain, chest pressure or shortness of breath today. Pending eval with PT/OT and speech therapy. He currently denies any nausea, no bowel movements. He does still have some mild abdominal discomfort. Liver enzymes also elevated will follow up with an abdominal ultrasound. Patient denies any history of alcohol abuse. Chest x- ray shows no acute pulmonary disease. Suggestive of COPD. Labs today show white count normalized to 8.6, hemoglobin 4.0, sodium 136, potassium 3.6, blood glucose elvated in the 300s. Levemir was decreased yesterday as patient was hypoglycemic in the 30's at dinner time. Increased today from 10 to 25 with close monitoring. Patient does have an implanted blood glucose monitoring device in place to RLQ abdomen, patient follows with Dr. Tucker Maddox for endocrinology and with Dr Radha Wyatt in the primary care office. Review of Systems Constitutional: Denied any fatigue denied any fever. Cardio vascular: denied any chest pain, palpitations Gastrointestinal as mentioned in the interval history Pulmonary: Denied any shortness of breath cough Neurologic denied any new focal deficits All inpatient medications were reviewed and appropriate changes in these medications as dictated in the interval history and assessment and plan. PHYSICAL EXAMINATION: GENERAL: The patient is alert and oriented x3, not in any acute distress. Well developed, well nourished. HEENT: Pupils are round and equally reacting to light. EOMI. No scleral icterus. No conjunctival pallor. Normocephalic, atraumatic. No pharyngeal erythema. No thyromegaly. CARDIOVASCULAR: S1 and S2 present. No murmurs, rubs, or gallops. PULMONARY: Chest is clear to auscultation, no wheezing or crackles. ABDOMEN: Soft, nontender, nondistended, normoactive bowel sounds. No palpable organomegaly. MUSCULOSKELETAL: No joint swelling or deformity. EXTREMITIES: No cyanosis, clubbing, or pedal edema. NEUROLOGICAL: Gross neurological examination did not reveal any focal deficits. SKIN: No rashes. Assessment and plan -Acute metabolic encephalopathy secondary to diabetic ketoacidosis this is improving ketoacidosis improved -Diabetic ketoacidosis s patient is insulin-dependent unsure whether elevated the patient is type I-type II. Ketoacidosis has resolved, patient is eating well per nurse, however was concern for some dysphagia and speech has been consulted. Patient now with hyperglycemia since levemir was decreased, and it was again adjusted today with close monitoring. -Metabolic acidosis: Secondary to lactic acidosis, which improved which is again secondary to intravascular depletion and dehydration, diabetic ketoacidosis, hyperchloremia secondary to IV fluids which has improved. -Mildly elevated troponins secondary to diabetic ketoacidosis patient doesn't have any chest pain patient's EKG is within normal limits -Leukocytosis, chest xray reviewed there is no evidence of pneumonia even on admission. Leukocytosis is secondary to ketoacidosis -Elevated procalcitonin with no clear source, urinalysis negative, xray negative, no white count, no fever, blood culture pending to complete work up. for now no antibiotics. -Acute renal failure secondary to DKA dehydration, improved -Chronic kidney disease stage 3 -Elevated liver enzymes, monitor trends, follow up ultrasound and check hepatitis panel. -Subclinical hypothyroidism with low TSH and normal T4, recommend following up outpatient for this. -Hypertension, blood pressure is stable, patient has Toprol at home as needed, currently held as he is normotensive. -Generalized weakness; PT/OT consultation requested DVT prophylaxis: Lovenox GI prophylaxis: Protonix Full Code Objective - Vital Signs Vital signs: Vital Signs Temp 97.4 F L 06/26/21 11:20 Pulse 93 06/26/21 11:20 Resp 18 06/26/21 11:20 BP 125/58 06/26/21 11:20 Pulse Ox 95 06/26/21 11:20 Intake & Output 06/25/21 06/26/21 06/26/21 18:59 06:59 18:59 Intake Total 0 Output Total 1500 1175 950 Balance -1500 -1175 -950 Intake: Oral 0 Output: Urine 1500 1175 950 Uretheral (Torres) 500 Other: Voiding Method Indwelling Catheter Indwelling Catheter Indwelling Catheter - Labs CBC & Chem 7: 06/26/21 07:54 06/26/21 07:54 Labs: Abnormal Lab Results - Last 24 Hours (Table) 06/25/21 06/25/21 06/25/21 Range/Units 13:00 16:35 19:38 RBC (4.30-5.90) m/uL Hgb (13.0-17.5) gm/dL Hct (39.0-53.0) % Sodium (137-145) mmol/L Carbon Dioxide (22-30) mmol/L BUN (9-20) mg/dL Glucose (74-99) mg/dL POC Glucose (mg/dL) 259 H 183 H (75-99) mg/dL Urine Glucose (UA) 4+ H (Negative) Urine Ketones 1+ H (Negative) Urine Blood Trace H (Negative) Urine RBC 7 H (0-5) /hpf Urine Mucus Rare H (None) /hpf 06/26/21 06/26/21 06/26/21 Range/Units 05:18 07:54 07:54 RBC 3.74 L (4.30-5.90) m/uL Hgb 12.0 L (13.0-17.5) gm/dL Hct 35.7 L (39.0-53.0) % Sodium 136 L (137-145) mmol/L Carbon Dioxide 21 L (22-30) mmol/L BUN 21 H (9-20) mg/dL Glucose 333 H (74-99) mg/dL POC Glucose (mg/dL) 366 H (75-99) mg/dL Urine Glucose (UA) (Negative) Urine Ketones (Negative) Urine Blood (Negative) Urine RBC (0-5) /hpf Urine Mucus (None) /hpf 06/26/21 Range/Units 11:48 RBC (4.30-5.90) m/uL Hgb (13.0-17.5) gm/dL Hct (39.0-53.0) % Sodium (137-145) mmol/L Carbon Dioxide (22-30) mmol/L BUN (9-20) mg/dL Glucose (74-99) mg/dL POC Glucose (mg/dL) 219 H (75-99) mg/dL Urine Glucose (UA) (Negative) Urine Ketones (Negative) Urine Blood (Negative) Urine RBC (0-5) /hpf Urine Mucus (None) /hpf Assessment and Plan Time with Patient: Less than 30
[2021-06-26 16:59] LABS: Glucose,Whole Blood 120 mg/dL (75-99)
[2021-06-26 20:14] LABS: Glucose,Whole Blood 158 mg/dL (75-99)
[2021-06-27 06:06] LABS: Glucose,Whole Blood 209 mg/dL (75-99)
[2021-06-27] MEDS: INSULIN ASPART (NovoLOG) 100 UNIT/ML VIAL SQ SCH ×8 (06:28→21:17)
[2021-06-27] MEDS ORDERED: INSULIN DETEMIR (LEVEMIR) 100 UNIT/ML SYR SQ SCH (07:00)
[2021-06-27 08:32] LABS: ALT 94 U/L (4-49); AST 76 U/L (17-59); African American GFR (CKD) >90 (>60 ml/min/1.73 sqM); Albumin 3.1 g/dL (3.5-5.0); Alkaline Phosphatase 53 U/L (38-126); Anion Gap 7 mmol/L; Blood Urea Nitrogen 16 mg/dL (9-20); Calcium 8.4 mg/dL (8.4-10.2); Carbon Dioxide 25 mmol/L (22-30); Chloride 102 mmol/L (98-107); Glucose 222 mg/dL (74-99); Non-African American GFR(CKD) >90 (>60 ml/min/1.73 sqM); Potassium 3.9 mmol/L (3.5-5.1); Sodium 134 mmol/L (137-145); Total Bilirubin 1.3 mg/dL (0.2-1.3); Total Protein 6.1 g/dL (6.3-8.2)
[2021-06-27 09:19] VITALS: RESP 18
[2021-06-27] MEDS: ATORVASTATIN 80 MG TAB PO SCH (09:21)
[2021-06-27] MEDS: ASPIRIN 81 MG PO SCH (09:21)
[2021-06-27] MEDS: EZETIMIBE 10 MG TAB PO SCH (09:22)
[2021-06-27] MEDS: PANTOPRAZOLE 40 MG/10 ML VIAL IV SCH ×2 (09:22→21:18)
[2021-06-27 11:02] LABS: Hepatitis A Antibody IgM Nonreactive (Nonreactive); Hepatitis B Core IgM Nonreactive (Nonreactive); Hepatitis B Surface Antigen Nonreactive (Nonreactive); Hepatitis C IgG Antibody Nonreactive (Nonreactive)
[2021-06-27 11:09] LABS: Glucose,Whole Blood 142 mg/dL (75-99)
--- NOTE | 2021-06-27 11:44 | US ---
EXAMINATION TYPE: US abdomen complete DATE OF EXAM: 06/27/2021 COMPARISON: NONE CLINICAL HISTORY: 56-year-old male abdominal pain elevated liver enzymes. TECHNIQUE: Multiple sonographic images of the abdomen are obtained. Generating Station Mechanic notes: Exam done portable FINDINGS: EXAM MEASUREMENTS: Liver Length: 14.8 cm Gallbladder Wall: 0.3 cm CBD: 0.3 cm Spleen: Obscured by overlying bowel gas. Right Kidney: 10.0 x 4.8 x 5.3 cm Left Kidney: 11.1 x 5.9 x 5.4 cm Pancreas: visualized portions wnl, limited by overlying midline bowel gas. Only a small portion of t he pancreatic body is seen. Liver: scanned intercostally, multiple round echogenic lesions suggesting hemangiomas, largest measu ring 1.6cm. Recommend a three-month follow-up ultrasound to ensure stability. Gallbladder: wnl Evidence for sonographic Knight's sign: no CBD: visualized portions wnl, limited by overlying bowel gas Spleen: obscured by overlying bowel gas Right Kidney: wnl, inferior pole limited by overlying bowel gas Left Kidney: wnl Upper IVC: wnl Abd Aorta: wnl IMPRESSION: 1. A few structures including the pancreas and spleen are largely obscured by bowel gas. Vertebral no gallstones or biliary ductal dilatation. 3. Multiple round echogenic lesions within the liver, largest measuring 1.6 cm. These likely represen t benign hemangiomas. Three-month follow-up ultrasound to ensure stability.
--- NOTE | 2021-06-27 14:58 | P.DS ---
Providers Date of admission: 06/24/21 01:19 Expected date of discharge: 06/27/21 Attending physician: Tashia Johnson Primary care physician: Stated None Hospital Course: Final diagnosis -Acute metabolic encephalopathy secondary to diabetic ketoacidosis, improved -Diabetic ketoacidosis, insulin-dependent unsure whether elevated the patient is type I-type II -Metabolic acidosis: Secondary to lactic acidosis, which improved which is again secondary to intravascular depletion and dehydration, diabetic ketoacidosis, hyperchloremia -Mildly elevated troponins secondary to diabetic ketoacidosis -Leukocytosis, secondary to ketoacidosis -Elevated procalcitonin with no clear source, urinalysis negative, xray negative, no white count, no fever -Acute renal failure secondary to DKA dehydration, improved -Chronic kidney disease stage 3 -Elevated liver enzymes, recommend repeat labs and close outpatient follow-up with primary care provider possible GI consult in the outpatient setting -Subclinical hypothyroidism with low TSH and normal T4, recommend following up outpatient for this. -Hypertension -Generalized weakness -DVT prophylaxis -GI prophylaxis -Full Code Discharge disposition Patient is being discharged in a stable condition with guarded prognosis to home. Patient is to follow-up with primary care provider Dr. Wyatt in the outpatient setting along with Dr. Tucker Maddox. Patient to continue with current insulin regimen and closely monitor Accu-Cheks before meals and at bedtime and keep a diary for primary care follow-up. Patient to follow-up with his endocrine on discharge. Recommend outpatient follow-up with repeat labs to monitor LFTs. Total time taken is greater than 35 minutes. Hospital course This is a 56-year-old male who was recently admitted from an outside hospital and was unresponsive found to be in DKA and was being closely monitored. With fluid resuscitation patient became more responsive and continued to be encephalopathic and CT of the brain did not show any acute abnormalities there was a mild troponin elevation. Patient's mentation improved and blood sugars are more manageable and does follow with Dr. Maddox in the outpatient setting endocrinology and have titrated doses of long-acting along with sliding scale and encourage the patient to continue monitoring blood sugars closely and keep a diary for primary and endocrine follow-up and to hold insulin if blood sugar is 120 or less. Patient is tolerating diet and asking when he can be discharged. Patient had an abdominal ultrasound done which shows multiple round echogenic lesions within the liver largest measuring 1.6 cm that likely represent benign hemangiomas and three-month follow-up ultrasound is recommended. This was discussed with the patient and further discuss with primary care provider. Patient was evaluated by physical therapy recommending subacute rehab although patient is refusing the patient is also refusing Homecare in the outpatient setting. Encourage the patient to follow-up with primary care provider this week on discharge. Currently no reports of chest pain, shortness of breath, or palpitations. Patient is afebrile. No reports of nausea or vomiting and patient is tolerating diet. Patient will be discharged home today. Guarded prognosis. On exam vital signs are stable. Cardio S1, S2 are muffled. Respiratory system shows diminished breath sounds at the bases with no wheezing or rhonchi noted. Abdomen is soft and nontender. Nervous system shows diffuse weakness. Please refer to medication reconciliation sheet for a list of medications. The impression and plan of care has been dictated by Luly Toro, nurse practitioner as directed. MD Ruel I have performed a history and examination and MDM of this patient, discussed the same with the dictator, and agree with the dictator's assessment and plan as written ,documented as a scribe. Based on total visit time, I have performed more than 50% of the visit. Total number of minutes spent on this visit, 10 minutes. Any additional findings or plans will be noted. Patient Condition at Discharge: Fair Plan - Discharge Summary New Discharge Prescriptions: New INSULIN ASPART (NovoLOG) [NovoLOG (formulary)] 0 unit SQ ACHS ml Pantoprazole [Protonix] 40 mg PO AC-BID 30 Days #60 tab INSULIN ASPART (NovoLOG) [NovoLOG (formulary)] 10 unit SQ ACHS 30 Days #5 pen Continue Metoprolol Succinate (ER) [Toprol XL] 50 mg PO DAILY PRN PRN Reason: HIGH BLOOD PRESSURE Cholecalciferol [Vitamin D3 (125 Mcg = 5000 Iu)] 125 mcg PO DAILY Insulin Aspart 20 - 30 units SQ TID-W/MEALS MDD 90UNITS HYDROcodone/APAP 7.5-325MG [[place] 7.5-325] 1 tab PO Q6H PRN PRN Reason: Pain Ezetimibe [Zetia] 10 mg PO DAILY Rosuvastatin Calcium [Crestor] 40 mg PO DAILY Aspirin EC [Ecotrin Low Dose] 81 mg PO DAILY Ibuprofen [Motrin] 800 mg PO Q8H PRN PRN Reason: Pain Or Fever > 100.5 Changed Insulin Glargine [Lantus Vial] 25 unit SQ DAILY #0 Discharge Medication List Aspirin EC [Ecotrin Low Dose] 81 mg PO DAILY 06/23/21 [History] Cholecalciferol [Vitamin D3 (125 Mcg = 5000 Iu)] 125 mcg PO DAILY 06/23/21 [History] Ezetimibe [Zetia] 10 mg PO DAILY 06/23/21 [History] HYDROcodone/APAP 7.5-325MG [[place] 7.5-325] 1 tab PO Q6H PRN 06/23/21 [History] Ibuprofen [Motrin] 800 mg PO Q8H PRN 06/23/21 [History] Insulin Aspart 20 - 30 units SQ TID-W/MEALS MDD 90UNITS 06/23/21 [History] Metoprolol Succinate (ER) [Toprol XL] 50 mg PO DAILY PRN 06/23/21 [History] Rosuvastatin Calcium [Crestor] 40 mg PO DAILY 06/23/21 [History] INSULIN ASPART (NovoLOG) [NovoLOG (formulary)] 0 unit SQ ACHS ml 06/27/21 [Rx] INSULIN ASPART (NovoLOG) [NovoLOG (formulary)] 10 unit SQ ACHS 30 Days #5 pen 06/27/21 [Rx] Insulin Glargine [Lantus Vial] 25 unit SQ DAILY #0 06/27/21 [Rx] Pantoprazole [Protonix] 40 mg PO AC-BID 30 Days #60 tab 06/27/21 [Rx] Follow up Appointment(s)/Referral(s): Nayely Wyatt MD [Other] - 1-2 Days (Primary Care) Tucker Maddox MD [Other] - 1 Week (Cement Block Maker) Activity/Diet/Wound Care/Special Instructions: Activity Limited until follow-up Follow-up environmental engineering manager this week Follow-up primary care provider this week Continue taking medications as prescribed Continue monitoring Accu-Cheks closely and keep a diary for primary care follow- up NovoLog sliding scale 0-150 equals 0 units 151-200 equals 2 units 201-250 equals 4 units 251-300 equals 6 units 301-350 equals 8 units 351-400 equals 10 units Please notify provider if blood sugar is 400 or above Hold blood sugar is 120 or less Continue heart healthy diabetic diet Discharge Disposition: HOME SELF-CARE
[2021-06-27 15:51] LABS: Glucose,Whole Blood <20 mg/dL (75-99)
[2021-06-27 15:51] LABS: Glucose,Whole Blood <20 mg/dL (75-99)
[2021-06-27] MEDS ORDERED: GLUCAGON 1 MG/ML VIAL ONE ×2 (15:51→16:06)
[2021-06-27 15:59] LABS: Glucose,Whole Blood <20 mg/dL (75-99)
[2021-06-27 16:10] LABS: Glucose,Whole Blood 20 mg/dL (75-99)
[2021-06-27 16:12] LABS: Glucose,Whole Blood 244 mg/dL (75-99)
[2021-06-27] MEDS ORDERED: DEXTROSE 50% SYRINGE 50 ML IVP STA (16:16)
[2021-06-27 16:27] LABS: Glucose,Whole Blood 144 mg/dL (75-99)
[2021-06-27 16:57] LABS: Glucose,Whole Blood 170 mg/dL (75-99)
--- NOTE | 2021-06-27 18:09 | P.PN ---
Subjective Progress Note Date: 06/27/21 Patient is a 56-year-old male was transferred from a outside hospital as patient doesn't they're unresponsive. Patient is found to be not diverticulitis doses. Patient urine drug screen was negative and alcohol levels are negative. Patient was started on IV fluids were started on DKA protocol patient was in anion gap is 13. Patient the slowly became more responsive and I valid the patient patient although is alert oriented 1 able to answer my questions he thinks that it's 2001, able to tell me his name. Patient is not sure why he is in the hospital. Patient was severely encephalopathic when he came in. CT of the head did not show any acute abnormality. Patient also had mildly elevated troponins of 0.147 0.109 with mildly elevated liver enzymes. Patient is on insulin for diabetes mellitus. TSH is bit low at 0.235 patient does have leukocytosis. Patient initially was thought to have pneumonia although chest x-ray did not show any infiltrate. I will obtain a pro-calcitonin wasn't a do not believe patient will need antibiotics patient doesn't have any cough. 06/25/2021 Patient looks much better today able to answer my questions very well and patient is alert oriented 3 today still having nausea is comparing of some abdominal discomfort we'll obtain abdominal x-ray patient's of Protonix will be changed to twice a day as well as the patient was started on Zofran patient was hypoglycemic was on D5W earlier. We'll cut down the Levemir to 10 units from 35 units, patient is presently nothing by mouth speech therapy will be consulted with the concerns of swallowing issues and aspiration. Patient doesn't have any pneumonia at this time will discontinue Rocephin. 06/26/2021 Patient evaluated today resting in bed, is alert and oriented 3. We will discontinue patient's Torres catheter. Patient denies any chest pain, chest pressure or shortness of breath today. Pending eval with PT/OT and speech therapy. He currently denies any nausea, no bowel movements. He does still have some mild abdominal discomfort. Liver enzymes also elevated will follow up with an abdominal ultrasound. Patient denies any history of alcohol abuse. Chest x- ray shows no acute pulmonary disease. Suggestive of COPD. Labs today show white count normalized to 8.6, sodium 136, potassium 3.6, blood glucose elvated in the 300s. Levemir was decreased yesterday as patient was hypoglycemic in the 30's at dinner time. Increased today from 10 to 25 with close monitoring. Patient does have an implanted blood glucose monitoring device in place to RLQ abdomen, patient follows with Dr. Tucker Maddox for endocrinology and with Dr Radha Wyatt in the primary care office. 06/27/2021 Patient was evaluated today and blood sugars have improved on current regimen and patient tolerating diet and eating per nursing staff. Patient was to be discharged today and during afternoon, patient was found to be cold and clammy, but alert and oriented x3. blood sugar less than 20 and was given an IM glucagon and fed and given orange juice and blood sugar continued to be low. Patient was receiving 10units ac tid and blood sugar in the am was slightly elevated. Patient did not receive long acting dose. Encouraged oral intake and close monitoring of blood sugars. Patient denies chest pain or shortness of breath. Patient is afebrile. Review of Systems Constitutional: Denied any fatigue denied any fever. Cardio vascular: denied any chest pain, palpitations Gastrointestinal as mentioned in the interval history Pulmonary: Denied any shortness of breath cough Neurologic denied any new focal deficits All inpatient medications were reviewed and appropriate changes in these medications as dictated in the interval history and assessment and plan. Active Medications Aspirin (Aspirin 81 Mg) 81 mg PO DAILY [facility] Last Admin: 06/27/21 09:21 Dose: 81 mg Documented by: Atorvastatin Calcium (Atorvastatin 80 Mg Tab) 80 mg PO DAILY [facility] Last Admin: 06/27/21 09:21 Dose: 80 mg Documented by: Ezetimibe (Ezetimibe 10 Mg Tab) 10 mg PO DAILY [facility] Last Admin: 06/27/21 09:22 Dose: 10 mg Documented by: Sodium Chloride (Saline 0.9%) 1,000 mls @ 500 mls/hr IV .Q2H ONE Last Admin: 06/24/21 02:20 Dose: 500 mls/hr Documented by: Sodium Chloride (Saline 0.45%) 1,000 mls @ 75 mls/hr IV .[id number] [facility] Last Admin: 06/26/21 17:51 Dose: 75 mls/hr Documented by: Insulin Aspart (Insulin Aspart (Novolog) 100 Unit/Ml Vial) 0 unit SQ ACHS [facility]; Protocol Last Admin: 06/27/21 17:37 Dose: Not Given Documented by: Insulin Aspart (Insulin Aspart (Novolog) 100 Unit/Ml Vial) 10 unit SQ ACHS [facility] Last Admin: 06/27/21 17:37 Dose: Not Given Documented by: Insulin Detemir (Insulin Detemir (Levemir) 100 Unit/Ml Syr) 25 unit SQ DAILY@0700 [facility] Last Admin: 06/27/21 06:28 Dose: 25 unit Documented by: Lorazepam (Lorazepam 2 Mg/Ml Inj) 0.5 mg IV Q6HR PRN PRN Reason: Anxiety Miscellaneous Information (Potassium Replacement Protocol 1 Each Misc) 1 each MISCELLANE DAILY PRN; Protocol PRN Reason: Per Protocol Morphine Sulfate (Morphine Sulfate 4 Mg/Ml Syringe) 4 mg IV Q4HR PRN PRN Reason: Severe Pain Naloxone HCl (Naloxone 0.4 Mg/Ml 1 Ml Vial) 0.2 mg IV Q2M PRN PRN Reason: Opioid Reversal Ondansetron HCl (Ondansetron 4 Mg/2 Ml Vial) 4 mg IVP Q6HR PRN PRN Reason: Nausea And Vomiting Last Admin: 06/25/21 11:00 Dose: 4 mg Documented by: Pantoprazole Sodium (Pantoprazole 40 Mg/10 Ml Vial) 40 mg IV BID [facility] Stop: 06/27/21 23:59 Last Admin: 06/27/21 09:22 Dose: 40 mg Documented by: PHYSICAL EXAMINATION: GENERAL: The patient is alert and oriented x3. Well developed, well nourished. HEENT: Pupils are round and equally reacting to light. EOMI. No scleral icterus. No conjunctival pallor. Normocephalic, atraumatic. No pharyngeal erythema. No thyromegaly. CARDIOVASCULAR: S1 and S2 muffled. PULMONARY: diminished breath sounds bilaterally with no wheezing or crackles. ABDOMEN: Soft, nontender, nondistended, normoactive bowel sounds. No palpable organomegaly. MUSCULOSKELETAL: No joint swelling or deformity. EXTREMITIES: No cyanosis, clubbing, or pedal edema. NEUROLOGICAL: Gross neurological examination did not reveal any focal deficits. SKIN: No rashes. Assessment: -Acute metabolic encephalopathy secondary to diabetic ketoacidosis this is improving ketoacidosis improved -Diabetic ketoacidosis: patient is insulin-dependent unsure whether elevated the patient is type I-type II. Ketoacidosis has resolved, patient is eating well per nurse, however was concern for some dysphagia and speech has been consulted. Patient now with hyperglycemia since levemir was decreased, and it was again adjusted today with close monitoring. -Metabolic acidosis: Secondary to lactic acidosis, which improved which is again secondary to intravascular depletion and dehydration, diabetic ketoacidosis, hyperchloremia secondary to IV fluids which has improved. -Mildly elevated troponins secondary to diabetic ketoacidosis patient doesn't have any chest pain patient's EKG is within normal limits -Leukocytosis, secondary to ketoacidosis -Elevated procalcitonin with no clear source, urinalysis negative, xray negative, no white count, no fever, blood culture are negative -Acute renal failure secondary to DKA dehydration, improved -Chronic kidney disease stage 3 -Elevated liver enzymes, ultrasound and hepatitis panel done, follow up repeat ultrasound for possible liver hemangioma -Subclinical hypothyroidism with low TSH and normal T4, recommend following up outpatient for this. -Hypertension, blood pressure is stable, patient has Toprol at home as needed, currently held as he is normotensive. -Generalized weakness -DVT prophylaxis: Lovenox GI prophylaxis: Protonix Full Code Plan: Patient was scheduled to be discharged and found to be having a hypoglycemic event with a blood sugar less than 20. Per nursing staff, patient was found cold and clammy, but alert and oriented x3. Patient attempted to have orange juice and blood sugar was still low. Given IM glucagon per protocol and new IV was established and was given an amp of glucose. Recommend close monitoring of oral intake and continue accuchecks achs at bedtime and at 2am. Patient will be observed closely overnight with possible discharge in 24 hours. Prognosis is guarded. The impression and plan of care has been dictated by Luly Toro, nurse practitioner as directed. MD Ruel I have performed a history and examination and MDM of this patient, discussed the same with the dictator, and agree with the dictator's assessment and plan as written ,documented as a scribe. Based on total visit time, I have performed more than 50% of the visit. Total number of minutes spent on this visit, 20 minutes. Any additional findings or plans will be noted. Objective - Vital Signs Vital signs: Vital Signs Temp 97.8 F 06/27/21 15:32 Pulse 89 06/27/21 15:32 Resp 18 06/27/21 15:32 BP 147/89 06/27/21 15:32 Pulse Ox 97 06/27/21 15:32 Intake & Output 06/26/21 06/27/21 06/27/21 18:59 06:59 18:59 Intake Total 120 30 868 Output Total 950 1200 Balance -830 30 -332 Weight 80.739 kg Intake: IV 30 Invasive Line 2 10 Invasive Line 3 10 Invasive Line 4 10 Oral 120 868 Output: Urine 950 1200 Uretheral (Torres) 500 Other: Voiding Method Urinal Toilet Toilet Urinal Urinal # Voids 1 2 1 - Labs CBC & Chem 7: 06/26/21 07:54 06/27/21 07:57 Labs: Abnormal Lab Results - Last 24 Hours (Table) 06/26/21 06/27/21 06/27/21 Range/Units 20:13 06:04 07:57 Sodium 134 L (137-145) mmol/L Glucose 222 H (74-99) mg/dL POC Glucose (mg/dL) 158 H 209 H (75-99) mg/dL AST 76 H (17-59) U/L ALT 94 H (4-49) U/L Total Protein 6.1 L (6.3-8.2) g/dL Albumin 3.1 L (3.5-5.0) g/dL 06/27/21 06/27/21 06/27/21 Range/Units 11:07 15:44 15:50 Sodium (137-145) mmol/L Glucose (74-99) mg/dL POC Glucose (mg/dL) 142 H <20 L <20 L (75-99) mg/dL AST (17-59) U/L ALT (4-49) U/L Total Protein (6.3-8.2) g/dL Albumin (3.5-5.0) g/dL 06/27/21 06/27/21 06/27/21 Range/Units 15:56 15:59 16:10 Sodium (137-145) mmol/L Glucose (74-99) mg/dL POC Glucose (mg/dL) <20 L 20 L 244 H (75-99) mg/dL AST (17-59) U/L ALT (4-49) U/L Total Protein (6.3-8.2) g/dL Albumin (3.5-5.0) g/dL 06/27/21 06/27/21 Range/Units 16:25 16:56 Sodium (137-145) mmol/L Glucose (74-99) mg/dL POC Glucose (mg/dL) 144 H 170 H (75-99) mg/dL AST (17-59) U/L ALT (4-49) U/L Total Protein (6.3-8.2) g/dL Albumin (3.5-5.0) g/dL
[2021-06-27] MEDS: SODIUM CHLORIDE 0.45% 1,000 ML IV SCH ×2 (20:06→21:18)
[2021-06-27 20:23] LABS: Glucose,Whole Blood 201 mg/dL (75-99)
[2021-06-27 23:32] LABS: Glucose,Whole Blood 137 mg/dL (75-99)
[2021-06-28 02:08] LABS: Glucose,Whole Blood 158 mg/dL (75-99)
[2021-06-28 04:11] LABS: Glucose,Whole Blood 185 mg/dL (75-99)
[2021-06-28 06:06] LABS: Glucose,Whole Blood 226 mg/dL (75-99)
[2021-06-28] MEDS: INSULIN ASPART (NovoLOG) 100 UNIT/ML VIAL SQ SCH ×3 (06:49→12:55)
[2021-06-28] MEDS ORDERED: INSULIN DETEMIR (LEVEMIR) 100 UNIT/ML SYR SQ SCH (07:00)
[2021-06-28] MEDS ORDERED: PANTOPRAZOLE 40 MG TABLET PO SCH (07:30)
[2021-06-28 08:42] LABS: Glucose,Whole Blood 264 mg/dL (75-99)
[2021-06-28] MEDS: ASPIRIN 81 MG PO SCH (08:42)
[2021-06-28] MEDS: EZETIMIBE 10 MG TAB PO SCH (08:42)
[2021-06-28] MEDS: ATORVASTATIN 80 MG TAB PO SCH (08:45)
[2021-06-28 09:31] VITALS: BP 122/67; PULSE 90; TEMP 98.7
[2021-06-28 12:18] LABS: Glucose,Whole Blood 149 mg/dL (75-99)
--- NOTE | 2021-06-29 09:15 | P.DS ---
Providers Date of admission: 06/24/21 01:19 Expected date of discharge: 06/28/21 Attending physician: Tashia Johnson Primary care physician: Stated None Hospital Course: Final diagnosis -Acute metabolic encephalopathy secondary to diabetic ketoacidosis, improved -Diabetic ketoacidosis, insulin-dependent unsure whether elevated the patient is type I-type II -Metabolic acidosis: Secondary to lactic acidosis, which improved which is again secondary to intravascular depletion and dehydration, diabetic ketoacidosis, hyperchloremia -Mildly elevated troponins secondary to diabetic ketoacidosis -Leukocytosis, secondary to ketoacidosis -Elevated procalcitonin with no clear source, urinalysis negative, xray negative, no white count, no fever -Acute renal failure secondary to DKA dehydration, improved -Chronic kidney disease stage 3 -Elevated liver enzymes, recommend repeat labs and close outpatient follow-up with primary care provider possible GI consult in the outpatient setting -Subclinical hypothyroidism with low TSH and normal T4, recommend following up outpatient for this. -Hypertension -Generalized weakness -DVT prophylaxis -GI prophylaxis -Full Code Discharge disposition Patient is being discharged in a stable condition with guarded prognosis to home. Patient is to follow-up with primary care provider Dr. Wyatt in the outpatient setting along with Dr. Tucker Maddox. Patient to continue with current insulin regimen and closely monitor Accu-Cheks before meals and at bedtime and keep a diary for primary care follow-up. Patient to follow-up with his endocrine on discharge. Recommend outpatient follow-up with repeat labs to monitor LFTs. Total time taken is greater than 35 minutes. Hospital course This is a 56-year-old male who was recently admitted from an outside hospital and was unresponsive found to be in DKA and was being closely monitored. With fluid resuscitation patient became more responsive and continued to be encephalopathic and CT of the brain did not show any acute abnormalities there was a mild troponin elevation. Patient's mentation improved and blood sugars are more manageable and does follow with Dr. Maddox in the outpatient setting endocrinology and have titrated doses of long-acting along with sliding scale and encourage the patient to continue monitoring blood sugars closely and keep a diary for primary and endocrine follow-up and to hold insulin if blood sugar is 120 or less. Patient is tolerating diet and asking when he can be discharged. Patient was scheduled to be discharged although found to have low blood sugar less than 20 that was not reported from his device. Apparently patient did not have all of his equipment that would alert him of a low blood sugar. Patient was asymptomatic although was found to be cold and clammy per nursing staff. Patient discharge was removed and patient closely observed overnight with no other periods of hypoglycemia. Patient states his blood sugars are more controlled if he takes his long acting, which he says is slow acting at bedtime as opposed to what he has been receiving at daytime. Dose was adjusted and patient educated to continue at lower dose and take long-acting insulin at night and continue adjust sliding scale and keep a diary of blood sugar readings and also to make sure he has his glucometer device with him at all times and patient is instructed and encouraged to follow-up with his stock lifter at scheduled appointment. Educated the patient to call endocrine today to secure appointment and schedule possibly sooner. Patient will be going home with sister who helps him get to appointments. This was also discussed with sister, Fabby over the phone per patient request. Patient had an abdominal ultrasound done which shows multiple round echogenic lesions within the liver largest measuring 1.6 cm that likely represent benign hemangiomas and three-month follow-up ultrasound is recommended. This was discussed with the patient and further discuss with primary care provider. Patient was evaluated by physical therapy recommending subacute rehab although patient is refusing the patient is also refusing Homecare in the outpatient setting. Encourage the patient to follow-up with primary care provider this week on discharge. Currently no reports of chest pain, shortness of breath, or palpitations. Patient is afebrile. No reports of nausea or vomiting and patient is tolerating diet. Patient will be discharged home today. Guarded prognosis. On exam vital signs are stable. Cardio S1, S2 are muffled. Respiratory system shows diminished breath sounds at the bases with no wheezing or rhonchi noted. Abdomen is soft and nontender. Nervous system shows diffuse weakness. Please refer to medication reconciliation sheet for a list of medications. The impression and plan of care has been dictated by Luly Toro, nurse practitioner as directed. MD Ruel I have performed a history and examination and MDM of this patient, discussed the same with the dictator, and agree with the dictator's assessment and plan as written ,documented as a scribe. Based on total visit time, I have performed more than 50% of the visit. Total number of minutes spent on this visit, 10 minutes. Any additional findings or plans will be noted. Patient Condition at Discharge: Fair Plan - Discharge Summary New Discharge Prescriptions: New INSULIN ASPART (NovoLOG) [NovoLOG (formulary)] 0 unit SQ ACHS ml Pantoprazole [Protonix] 40 mg PO AC-BID 30 Days #60 tab Continue Metoprolol Succinate (ER) [Toprol XL] 50 mg PO DAILY PRN PRN Reason: HIGH BLOOD PRESSURE Cholecalciferol [Vitamin D3 (125 Mcg = 5000 Iu)] 125 mcg PO DAILY HYDROcodone/APAP 7.5-325MG [[place] 7.5-325] 1 tab PO Q6H PRN PRN Reason: Pain Ezetimibe [Zetia] 10 mg PO DAILY Rosuvastatin Calcium [Crestor] 40 mg PO DAILY Aspirin EC [Ecotrin Low Dose] 81 mg PO DAILY Ibuprofen [Motrin] 800 mg PO Q8H PRN PRN Reason: Pain Or Fever > 100.5 Changed Insulin Glargine [Lantus Vial] 15 unit SQ HS #0 Discontinued Insulin Aspart 20 - 30 units SQ TID-W/MEALS [id number] [id number] Discharge Medication List Aspirin EC [Ecotrin Low Dose] 81 mg PO DAILY 06/23/21 [History] Cholecalciferol [Vitamin D3 (125 Mcg = 5000 Iu)] 125 mcg PO DAILY 06/23/21 [History] Ezetimibe [Zetia] 10 mg PO DAILY 06/23/21 [History] HYDROcodone/APAP 7.5-325MG [[place] 7.5-325] 1 tab PO Q6H PRN 06/23/21 [History] Ibuprofen [Motrin] 800 mg PO Q8H PRN 06/23/21 [History] Metoprolol Succinate (ER) [Toprol XL] 50 mg PO DAILY PRN 06/23/21 [History] Rosuvastatin Calcium [Crestor] 40 mg PO DAILY 06/23/21 [History] INSULIN ASPART (NovoLOG) [NovoLOG (formulary)] 0 unit SQ ACHS ml 06/27/21 [Rx] Pantoprazole [Protonix] 40 mg PO AC-BID 30 Days #60 tab 06/27/21 [Rx] Insulin Glargine [Lantus Vial] 15 unit SQ HS #0 06/28/21 [Rx] Follow up Appointment(s)/Referral(s): Nayely Wyatt MD [Other] - 1-2 Days (Primary Care) Tucker Maddox MD [Other] - 1 Week (Satin Finisher) Patient Instructions/Handouts: Diabetic Ketoacidosis (DC) Activity/Diet/Wound Care/Special Instructions: Activity Limited until follow-up Follow-up stock lifter this week Follow-up primary care provider this week Continue taking medications as prescribed Continue monitoring Accu-Cheks closely and keep a diary for primary care follow- up NovoLog sliding scale 0-150 equals 0 units 151-200 equals 2 units 201-250 equals 4 units 251-300 equals 6 units 301-350 equals 8 units 351-400 equals 10 units Please notify provider if blood sugar is 400 or above Hold blood sugar is 120 or less Continue heart healthy diabetic diet Patient is to follow-up with primary care provider regarding most likely a benign hemangiomas that represent multiple round echogenic lesions within the liver the largest being 1.6 cm, recommending three-month follow-up ultrasound and this can be discussed in done in the outpatient setting with primary care provider Discharge Disposition: HOME SELF-CARE
== END 2021-06-28 15:37 | disposition home or self-care (01) | DRG 637 ==
LOC: EC 22:51 → 3SCARD 06-24 01:19
PROVIDERS: ADMIT Hospitalist; ATTEND Hospitalist
DX: E11.10 Type 2 diabetes mellitus with ketoacidosis without coma (principal); G93.41 Metabolic encephalopathy; F05 Delirium due to known physiological condition; N17.9 Acute kidney failure, unspecified; E03.8 Other specified hypothyroidism; E11.22 Type 2 diabetes mellitus with diabetic chronic kidney disease; E11.649 Type 2 diabetes mellitus with hypoglycemia without coma; E86.0 Dehydration; R94.5 Abnormal results of liver function studies; E87.8 Other disorders of electrolyte and fluid balance, not elsewhere classified; R53.1 Weakness; I12.9 Hypertensive chronic kidney disease with stage 1 through stage 4 chronic kidney disease, or unspecified chronic kidney disease; R77.8 Other specified abnormalities of plasma proteins; N18.30 Chronic kidney disease, stage 3 unspecified; Z79.4 Long term (current) use of insulin; Z79.82 Long term (current) use of aspirin; Z79.899 Other long term (current) drug therapy
CPT/HCPCS: 36415; 70450; 71046; 76700; 80048; 80051; 80053; 80074; 80143; 80179; 80306; 80320; 81001; 82009; 82140; 82565; 82803; 82947; 83605; 83735; 83880; 84100; 84145; 84439; 84443; 84484; 84520; 85025; 85027; 85610; 85730; 87040; 93005; 96360; 99291

== ENCOUNTER 2021-06-29 23:11 | Inpatient (IN) | payer MEDICARE, OTHER ==
[2021-06-29 23:18] LABS: Glucose,Whole Blood 228 mg/dL (75-99)
--- NOTE | 2021-06-29 23:53 | ED ---
General Adult HPI - General Stated complaint: DKA Time Seen by Provider: 06/29/21 23:32 - History of Present Illness Initial comments: This patient is a 56-year-old man with history of diabetes who presents here as a transfer from [facility]. The patient had gone there this afternoon because his blood sugar was out of control. He reports that he had been in the hospital here from June 25 until yesterday for episode of DKA. He had gone home and been feeling well then noticed that his blood sugars were increasing today so he went to the other facility. There they found him to have DKA and also elevated troponin and they transferred him here. -: hour(s) Severity scale (1-10): 0 Improves with: none Worsens with: none Associated Symptoms: nausea/vomiting Treatments Prior to Arrival: Aspirin, other (Insulin drip, heparin drip, aspirin) - Related Data Home Medications Medication Instructions Recorded Confirmed Aspirin EC [Ecotrin Low Dose] 81 mg PO DAILY 06/23/21 06/23/21 Cholecalciferol [Vitamin D3 (125 125 mcg PO DAILY 06/23/21 06/23/21 Mcg = 5000 Iu)] Ezetimibe [Zetia] 10 mg PO DAILY 06/23/21 06/23/21 HYDROcodone/APAP 7.5-325MG [[place] 1 tab PO Q6H PRN 06/23/21 06/23/21 7.5-325] Ibuprofen [Motrin] 800 mg PO Q8H PRN 06/23/21 06/23/21 Metoprolol Succinate (ER) [Toprol 50 mg PO DAILY PRN 06/23/21 06/23/21 XL] Rosuvastatin Calcium [Crestor] 40 mg PO DAILY 06/23/21 06/24/21 Previous Rx's Medication Instructions Recorded INSULIN ASPART (NovoLOG) [NovoLOG 0 unit SQ ACHS ml 06/27/21 (formulary)] Pantoprazole [Protonix] 40 mg PO AC-BID 30 Days #60 tab 06/27/21 Insulin Glargine [Lantus Vial] 15 unit SQ HS #0 06/28/21 Allergies Allergy/AdvReac Type Severity Reaction Status Date / Time No Known Allergies Allergy Verified 06/29/21 23:46 Review of Systems ROS Statement: Those systems with pertinent positive or pertinent negative responses have been documented in the HPI. ROS Other: All systems not noted in ROS Statement are negative. Constitutional: Denies: fever, chills Respiratory: Denies: cough, dyspnea Cardiovascular: Denies: chest pain, palpitations, edema Gastrointestinal: Reports: nausea, vomiting. Denies: abdominal pain, diarrhea Genitourinary: Denies: dysuria, hematuria Musculoskeletal: Denies: back pain Skin: Denies: rash Neurological: Denies: headache, weakness Past Medical History Past Medical History: Diabetes Mellitus, Hypertension, Renal Disease Additional Past Medical History / Comment(s): Type 2 Diabetes , Stage 3 kidney disease History of Any Multi-Drug Resistant Organisms: None Reported, Unobtainable Past Surgical History: Tonsillectomy Past Anesthesia/Blood Transfusion Reactions: No Reported Reaction Past Psychological History: Depression Smoking Status: Never smoker Past Alcohol Use History: None Reported Past Drug Use History: None Reported - Past Family History Mother Family Medical History: No Reported History General Exam General appearance: alert, in no apparent distress Head exam: Present: atraumatic, normocephalic Eye exam: Present: normal appearance. Absent: scleral icterus, conjunctival injection Neck exam: Present: normal inspection Respiratory exam: Present: normal lung sounds bilaterally. Absent: respiratory distress, wheezes, rales, rhonchi, stridor Cardiovascular Exam: Present: regular rate, normal rhythm, normal heart sounds. Absent: systolic murmur, diastolic murmur, rubs, gallop GI/Abdominal exam: Present: soft. Absent: distended, tenderness, guarding, rebound, rigid, mass Extremities exam: Present: normal inspection, normal capillary refill. Absent: pedal edema, calf tenderness Back exam: Present: normal inspection Neurological exam: Present: alert Skin exam: Present: warm, dry, intact, normal color. Absent: rash Course Vital Signs 06/29/21 06/30/21 06/30/21 23:18 01:16 03:17 Temperature 98.7 F Pulse Rate 94 88 86 Respiratory 24 18 16 Rate Blood Pressure 106/53 108/56 98/55 O2 Sat by Pulse 99 100 98 Oximetry EKG Findings - EKG Results: EKG: interpreted by ERMD, sinus rhythm (Rate 90 bpm), normal axis - Blocks, [place], Hypertrophy, ST Abn: Repolarization changes or abnormalities: ST or T wave suggestive of ischemia Medical Decision Making - Medical Decision Making Patient is a 56-year-old man transferred here for DKA in and STEMI. On arrival here, his anion gap is closed and blood sugar is much improved. The patient's troponin remains elevated. Case discussed with cardiology and patient also admitted for further treatment. - Lab Data Result diagrams: 06/30/21 01:14 06/30/21 01:14 Lab Results 06/29/21 06/30/21 06/30/21 Range/Units 23:17 01:14 01:14 WBC 14.1 H (3.8-10.6) k/uL RBC 3.82 L (4.30-5.90) m/uL Hgb 12.0 L (13.0-17.5) gm/dL Hct 36.5 L (39.0-53.0) % MCV 95.6 (80.0-100.0) fL MCH 31.4 (25.0-35.0) pg MCHC 32.8 (31.0-37.0) g/dL RDW 13.3 (11.5-15.5) % Plt Count 259 (150-450) k/uL MPV 8.1 Neutrophils % 70 % Lymphocytes % 21 % Monocytes % 6 % Eosinophils % 1 % Basophils % 0 % Neutrophils # 9.8 H (1.3-7.7) k/uL Lymphocytes # 2.9 (1.0-4.8) k/uL Monocytes # 0.8 (0-1.0) k/uL Eosinophils # 0.2 (0-0.7) k/uL Basophils # 0.0 (0-0.2) k/uL APTT (22.0-30.0) sec Sodium 132 L (137-145) mmol/L Potassium 4.1 (3.5-5.1) mmol/L Chloride 103 (98-107) mmol/L Carbon Dioxide 14 L (22-30) mmol/L Anion Gap 15 mmol/L BUN 23 H (9-20) mg/dL Creatinine 0.96 (0.66-1.25) mg/dL Est GFR (CKD-EPI)AfAm >90 (>60 ml/min/1.73 sqM) Est GFR (CKD-EPI)NonAf 89 (>60 ml/min/1.73 sqM) Glucose 172 H (74-99) mg/dL POC Glucose (mg/dL) 228 H (75-99) mg/dL POC Glu Retail Salesworker ID Luz Diamond Plasma Lactic Acid Brooks (0.7-2.0) mmol/L Calcium 9.0 (8.4-10.2) mg/dL Magnesium 1.9 (1.6-2.3) mg/dL Total Bilirubin 1.2 (0.2-1.3) mg/dL AST 53 (17-59) U/L ALT 64 H (4-49) U/L Alkaline Phosphatase 77 (38-126) U/L Troponin I (0.000-0.034) ng/mL Total Protein 6.9 (6.3-8.2) g/dL Albumin 3.7 (3.5-5.0) g/dL Serum Alcohol <10 mg/dL Acetone, Qual Positive (Negative) 06/30/21 06/30/21 06/30/21 Range/Units 01:14 01:14 01:14 WBC (3.8-10.6) k/uL RBC (4.30-5.90) m/uL Hgb (13.0-17.5) gm/dL Hct (39.0-53.0) % MCV (80.0-100.0) fL MCH (25.0-35.0) pg MCHC (31.0-37.0) g/dL RDW (11.5-15.5) % Plt Count (150-450) k/uL MPV Neutrophils % % Lymphocytes % % Monocytes % % Eosinophils % % Basophils % % Neutrophils # (1.3-7.7) k/uL Lymphocytes # (1.0-4.8) k/uL Monocytes # (0-1.0) k/uL Eosinophils # (0-0.7) k/uL Basophils # (0-0.2) k/uL APTT 20.5 L (22.0-30.0) sec Sodium (137-145) mmol/L Potassium (3.5-5.1) mmol/L Chloride (98-107) mmol/L Carbon Dioxide (22-30) mmol/L Anion Gap mmol/L BUN (9-20) mg/dL Creatinine (0.66-1.25) mg/dL Est GFR (CKD-EPI)AfAm (>60 ml/min/1.73 sqM) Est GFR (CKD-EPI)NonAf (>60 ml/min/1.73 sqM) Glucose (74-99) mg/dL POC Glucose (mg/dL) (75-99) mg/dL POC Glu Retail Salesworker ID Plasma Lactic Acid Brooks 1.0 (0.7-2.0) mmol/L Calcium (8.4-10.2) mg/dL Magnesium (1.6-2.3) mg/dL Total Bilirubin (0.2-1.3) mg/dL AST (17-59) U/L ALT (4-49) U/L Alkaline Phosphatase (38-126) U/L Troponin I 7.900 H* (0.000-0.034) ng/mL Total Protein (6.3-8.2) g/dL Albumin (3.5-5.0) g/dL Serum Alcohol mg/dL Acetone, Qual (Negative) Disposition Clinical Impression: NSTEMI (non-ST elevated myocardial infarction), DKA (diabetic ketoacidosis) Disposition: ADMITTED IP TO THIS HOSP Condition: Serious Is patient prescribed a controlled substance at d/c from ED?: No
[2021-06-30 01:27] LABS: Basophils % (A) 0 %; Eosinophils # (A) 0.2 k/uL (0-0.7); Eosinophils % (A) 1 %; HCT 36.5 % (39.0-53.0); Lymphocytes # (A) 2.9 k/uL (1.0-4.8); Lymphocytes % (A) 21 %; MCH 31.4 pg (25.0-35.0); MCHC 32.8 g/dL (31.0-37.0); MCV 95.6 fL (80.0-100.0); Mean Platelet Volume 8.1; Monocytes # (A) 0.8 k/uL (0-1.0); Monocytes % (A) 6 %; Neutrophils # (A) 9.8 k/uL (1.3-7.7); Neutrophils % (A) 70 %; Platelet Count 259 k/uL (150-450); RBC 3.82 m/uL (4.30-5.90); RDW 13.3 % (11.5-15.5); WBC 14.1 k/uL (3.8-10.6)
[2021-06-30 01:40] LABS: Potassium 4.1 mmol/L (3.5-5.1)
[2021-06-30 01:41] LABS: ALT 64 U/L (4-49); AST 53 U/L (17-59); African American GFR (CKD) >90 (>60 ml/min/1.73 sqM); Albumin 3.7 g/dL (3.5-5.0); Alcohol <10 mg/dL; Alkaline Phosphatase 77 U/L (38-126); Anion Gap 15 mmol/L; Blood Urea Nitrogen 23 mg/dL (9-20); Carbon Dioxide 14 mmol/L (22-30); Chloride 103 mmol/L (98-107); Glucose 172 mg/dL (74-99); Magnesium 1.9 mg/dL (1.6-2.3); Non-African American GFR(CKD) 89 (>60 ml/min/1.73 sqM); Sodium 132 mmol/L (137-145); Total Bilirubin 1.2 mg/dL (0.2-1.3); Total Protein 6.9 g/dL (6.3-8.2)
[2021-06-30] MEDS ORDERED: NITROGLYCERIN SL TABS 0.4 MG TAB SUBLINGUAL PRN (02:13)
[2021-06-30] MEDS ORDERED: HEPARIN SOD,PORK IN 0.45% NACL 25,000 UNIT in 0.45% NACL 1 250ML.BAG IV SCH (02:15)
[2021-06-30 05:40] LABS: Appearance,Urine Clear (Clear); Bacteria,Urine Rare /hpf; Bilirubin,Urine 1+ (Negative); Blood,Urine Large (Negative); Color,Urine Yellow; Glucose,Urine (UA) Negative (Negative); Ketones,Urine 3+ (Negative); Leukocyte Esterase,Urine Trace (Negative); Mucus,Urine Rare /hpf; Nitrite,Urine Negative (Negative); PH, Urine 5.5 (5.0-8.0); Protein,Urine Trace (Negative); RBC,Urine >182 /hpf (0-5); Specific Gravity,Urine 1.026 (1.001-1.035); WBC,Urine 14 /hpf (0-5)
[2021-06-30] MEDS ORDERED: ATORVASTATIN 80 MG TAB PO SCH (09:00)
[2021-06-30] MEDS ORDERED: SODIUM CHLORIDE 0.9% 1,000 ML IV ONE (09:15)
[2021-06-30 09:26] LABS: Glucose,Whole Blood 211 mg/dL (75-99)
[2021-06-30] MEDS ORDERED: ASPIRIN 325 MG TAB ONE (09:28)
[2021-06-30] MEDS: METOPROLOL SUCCINATE (ER) 25 MG TAB.ER.24H PO SCH (09:33)
[2021-06-30] MEDS: EZETIMIBE 10 MG TAB PO SCH (09:33)
[2021-06-30] MEDS ORDERED: VERAPAMIL 2.5 MG/ML 2 ML AMP ONE (09:46)
[2021-06-30] MEDS ORDERED: LIDOCAINE 1% INJ 10MG/ML (20 ML MDV) ONE (09:46)
--- NOTE | 2021-06-30 09:47 | P.CRDCN ---
History of Present Illness History of present illness: This is a 56 year old male with a past medical history of Type 2 Diabetes with insulin pump, Hyperlipidemia, hypertension. He does not follow with a moss picker. We have been consulted for elevated troponin. Patient presents to [facility] transfer from [facility]. Patient presented to the hospital initially for uncontrolled blood sugars. He states that his insulin pump stopped working and he notices blood sugars in 400s-500s. He also had symptoms of diaphoresis, polyuria and polydipsia. At [facility], troponin was elevated at 6.9. Blood sugars were 518. EKG revealed sinus rhythm with no acute STT wave abnormalities suggesting acute ischemia. Chest x-ray was completed which showed no acute cardiopulmonary process. Covid-19 test negative. Patient was transferred him a [facility] to elevated troponin.Patient denies any chest pain, palpitations, any chest discomfort, shortness of breath, lightheadedness, dizziness, syncope or near syncope. He denies any cough, fever, chills. He denies any history of coronary artery disease, NC, stroke. He denies any family history of coronary artery disease. He states he has been told he has a heart murmur. He denies tobacco use, alcohol use or illicit drug use. DIAGNOSTICS EKG reveals sinus rhythm, heart rate 90, nonspecific ST ST-T wave abnormalities. Prior EKG and repeat EKGs with similar findings Laboratory reviewed, Troponins 6.9-7.9-5.9-3.8, sodium 132, potassium 4.1, BUN 23, serum creatinine 0.9, glucose 172, WBC 14.1, hemoglobin 12, platelets 259 Current home medications include simvastatin 40 mg daily, Toprol succinate 50 mg daily when necessary for HTN, Zetia 10 mg daily, aspirin 81 mg daily REVIEW OF SYSTEMS At the time of my exam: CONSTITUTIONAL: Denies fever or chills. +diaphoresis CARDIOVASCULAR: Denies chest pain, shortness of breath, orthopnea, PND or palpitations. RESPIRATORY: Denies cough. GASTROINTESTINAL: Denies abdominal pain, diarrhea, constipation, nausea or vomiting. MUSCULOSKELETAL: Denies myalgias. NEUROLOGIC: Denies numbness, tingling, headache or weakness. ENDOCRINE: Denies fatigue, Denies weight change, +polydipsia +polyurina. GENITOURINARY: Denies burning, hematuria or urgency with micturation. HEMATOLOGIC: Denies history of anemia or bleeding. PHYSICAL EXAMINATION Blood pressure 111/52, heart rate 85, afebrile, saturations 97% on room air CONSTITUTIONAL: No apparent distress. HEENT: Head is normocephalic. Pupils are equal, round. Sclerae anicteric. Mucous membranes of the mouth are moist. No JVD. No carotid bruit. CHEST EXAMINATION: Lungs are clear to auscultation. No chest wall tenderness is noted on palpation or with deep breathing. HEART EXAMINATION: Regular rate and rhythm. S1, S2 heard. Systolic ejection noted at right sternal border, base, apex ABDOMEN: Soft, nontender. Positive bowel sounds. EXTREMITIES: 2+ peripheral pulses, no lower extremity edema and no calf tenderness. SKIN: warm, moist NEUROLOGIC EXAMINATION: Patient is awake, alert and oriented x3. ASSESSMENT NSTEMI Hyperglycemia History of hypertension Hyperlipidemia Type 2 Diabetes PLAN -Obtain 2D echocardiogram and doppler study to assess cardiac structure and function. -Continue IV Heparin, aspirin, statin, beta loraine -We recommend cardiac catheterization at this time, patient is agreeable. -I have discussed the risks, benefits and alternative therapies for the above- mentioned procedure and for both sedation/analgesia as well as necessary blood product administration, if indicated, as they pertain to this patient. The patient has indicated understanding and acceptance of the risks and procedures discussed. Questions have been answered appropriately and he is agreeable to move forward with the above-stated procedure. -Further recommendations based on clinical course Thank you kindly for this consultation. Nurse practitioner note has been reviewed by physician. Signing provider agrees with the documented findings, assessment, and plan of care. Past Medical History Past Medical History: Diabetes Mellitus, Hypertension, Renal Disease Additional Past Medical History / Comment(s): Type 2 Diabetes , Stage 3 kidney disease History of Any Multi-Drug Resistant Organisms: None Reported, Unobtainable Past Surgical History: Tonsillectomy Past Anesthesia/Blood Transfusion Reactions: No Reported Reaction Past Psychological History: Depression Smoking Status: Never smoker Past Alcohol Use History: None Reported Past Drug Use History: None Reported - Past Family History Mother Family Medical History: No Reported History Father Family Medical History: Diabetes Mellitus Medications and Allergies Home Medications Medication Instructions Recorded Confirmed Type Aspirin EC [Ecotrin Low Dose] 81 mg PO DAILY 06/23/21 06/30/21 History Cholecalciferol [Vitamin D3 (125 125 mcg PO DAILY 06/23/21 06/30/21 History Mcg = 5000 Iu)] Ezetimibe [Zetia] 10 mg PO DAILY 06/23/21 06/30/21 History HYDROcodone/APAP 7.5-325MG [[place] 1 tab PO Q6H PRN 06/23/21 06/30/21 History 7.5-325] Ibuprofen [Motrin] 800 mg PO Q8H PRN 06/23/21 06/30/21 History Metoprolol Succinate (ER) [Toprol 50 mg PO DAILY PRN 06/23/21 06/30/21 History XL] Rosuvastatin Calcium [Crestor] 40 mg PO DAILY 06/23/21 06/30/21 History Pantoprazole [Protonix] 40 mg PO AC-BID 30 Days #60 tab 06/27/21 06/30/21 Rx Insulin Glargine [Lantus Vial] 15 unit SQ HS #0 06/28/21 06/30/21 Rx INSULIN ASPART (NovoLOG) [NovoLOG See Protocol SQ ACHS 06/30/21 06/30/21 History (formulary)] Allergies Allergy/AdvReac Type Severity Reaction Status Date / Time No Known Allergies Allergy Verified 06/30/21 06:50 Physical Exam Vitals: Vital Signs Temp Pulse Resp BP Pulse Ox 06/30/21 06:07 85 16 111/52 97 06/30/21 03:17 86 16 98/55 98 06/30/21 01:16 88 18 108/56 100 06/29/21 23:18 98.7 F 94 24 106/53 99 Intake and Output 06/29/21 06/30/21 06/30/21 22:59 06:59 14:59 Other: Weight 81.647 kg Results 06/30/21 01:14 06/30/21 01:14 Cardiac Enzymes 06/30/21 06/30/21 06/30/21 Range/Units 01:14 01:14 04:30 AST 53 (17-59) U/L Troponin I 7.900 H* 5.900 H* (0.000-0.034) ng/mL Coagulation 06/30/21 Range/Units 01:14 APTT 20.5 L (22.0-30.0) sec CBC 06/30/21 Range/Units 01:14 WBC 14.1 H (3.8-10.6) k/uL RBC 3.82 L (4.30-5.90) m/uL Hgb 12.0 L (13.0-17.5) gm/dL Hct 36.5 L (39.0-53.0) % Plt Count 259 (150-450) k/uL Comprehensive Metabolic Panel 06/30/21 Range/Units 01:14 Sodium 132 L (137-145) mmol/L Potassium 4.1 (3.5-5.1) mmol/L Chloride 103 (98-107) mmol/L Carbon Dioxide 14 L (22-30) mmol/L BUN 23 H (9-20) mg/dL Creatinine 0.96 (0.66-1.25) mg/dL Glucose 172 H (74-99) mg/dL Calcium 9.0 (8.4-10.2) mg/dL AST 53 (17-59) U/L ALT 64 H (4-49) U/L Alkaline Phosphatase 77 (38-126) U/L Total Protein 6.9 (6.3-8.2) g/dL Albumin 3.7 (3.5-5.0) g/dL Current Medications Generic Name Dose Route Start Last Admin Trade Name Freq PRN Reason Stop Dose Admin Aspirin 325 mg 07/01/21 09:00 Aspirin 325 Mg Tab PO DAILY [facility] Atorvastatin Calcium 80 mg 06/30/21 09:00 Atorvastatin 80 Mg Tab PO DAILY [facility] Ezetimibe 10 mg 06/30/21 09:00 Ezetimibe 10 Mg Tab PO DAILY [facility] Heparin Sodium/Sodium Chloride 250 mls @ 9.798 mls/hr 06/30/21 02:15 06/30/21 03:01 25,000 unit/ Sodium Chloride IV 11.98 units/kg/hr .Q24H EUGENE 9.78 mls/hr Administration Protocol 12 UNITS/KG/HR Metoprolol Succinate 25 mg 06/30/21 09:00 Metoprolol Succinate (Er) 50 Mg Tab.Er.24h PO DAILY [facility] Nitroglycerin 0.4 mg 06/30/21 02:13 Nitroglycerin Sl Tabs 0.4 Mg Tab SUBLINGUAL Q5M PRN Chest Pain Intake and Output 06/29/21 06/30/21 06/30/21 22:59 06:59 14:59 Other: Weight 81.647 kg 06/30/21 01:14 06/30/21 01:14
[2021-06-30] MEDS ORDERED: HEPARIN SODIUM 1,000 UN/ML (10ML VL) ONE (09:49)
[2021-06-30] MEDS ORDERED: fentaNYL (PF) 50 MCG/ML 2 ML AMP ONE (09:50)
[2021-06-30] MEDS ORDERED: MIDAZOLAM 2 MG/2 ML VIAL IV ONE (09:57)
[2021-06-30] MEDS ORDERED: fentaNYL (PF) 50 MCG/ML 2 ML AMP IV ONE (09:57)
[2021-06-30] MEDS ORDERED: LIDOCAINE 1% INJ 10MG/ML (20 ML MDV) SQ ONE (09:59)
[2021-06-30] MEDS ORDERED: IOPAMIDOL-370 125ML BTL INJ ONE (10:33)
--- NOTE | 2021-06-30 11:40 | ECHOF ---
Referral Reason:elevated troponin. murmur MEASUREMENTS -------- HEIGHT: 195.6 cm WEIGHT: 81.6 kg BP: 111/52 RVIDd: 2.9 cm (< 3.3) IVSd: 1.4 cm (0.6 - 1.1) LVIDd: 4.3 cm (3.9 - 5.3) LVPWd: 1.3 cm (0.6 - 1.1) IVSs: 1.9 cm LVIDs: 2.2 cm LVPWs: 2.0 cm LAESV Index (A-L): 36.99 ml/m Ao Diam: 3.5 cm (2.0 - 3.7) AV Cusp: 1.4 cm (1.5 - 2.6) LA Diam: 4.3 cm (2.7 - 3.8) MV E Justin: 1.29 m/s MV DecT: 296 ms MV A Justin: 1.73 m/s MV E/A Ratio: 0.74 AV maxP.85 mmHg AV meanP.96 mmHg RAP: 5.00 mmHg RVSP: 52.45 mmHg FINDINGS -------- Sinus rhythm. This was a technically adequate study. The left ventricular size is normal. There is moderate concentric left ventricular hypertrophy. O verall left ventricular systolic function is normal with, an EF between 55 - 60 %. The right ventricle is normal in size. LA is moderately dilated 34-39 ml/m2 The right atrial size is normal. Interatrial and interventricular septum intact. There is no evidence of aortic regurgitation. There is moderate aortic stenosis present. The maxi mum velocity across the aortic valve is 3.35m/s. Peak/mean gradient across the Aortic Valve is 44.8 5mmHg / 23.96mmHg. Severe mitral annular calcification present. Spwi-bm-hhouvhgr mitral regurgitation is present. T he peak and mean MV gradients are 10.69mmHg 5.07mmHg as measured by doppler. Moderate thickening of the anterior mitral valve leaflet. Dakh-yt-xmbrsmnr tricuspid regurgitation present. There is moderate pulmonary hypertension. The r ight ventricular systolic pressure, as measured by Doppler, is 52.45mmHg. There is no pulmonic regurgitation present. The aortic root size is normal. IVC Not well visulized. Echo free space represents a pericardial fat pad. There is no pericardial effusion. CONCLUSIONS -------- 1. The left ventricular size is normal. 2. There is moderate concentric left ventricular hypertrophy. 3. Overall left ventricular systolic function is normal with, an EF between 55 - 60 %. 4. LA is moderately dilated 34-39 ml/m2 5. There is moderate aortic stenosis present. 6. The maximum velocity across the aortic valve is 3.35m/s. 7. Peak/mean gradient across the Aortic Valve is 44.85mmHg / 23.96mmHg. 8. Severe mitral annular calcification present. 9. Gxrw-kb-yifbqptq mitral regurgitation is present. 10. The peak and mean MV gradients are 10.69mmHg 5.07mmHg as measured by doppler. 11. Moderate thickening of the anterior mitral valve leaflet. 12. Yaqv-ji-lontasqh tricuspid regurgitation present. 13. There is moderate pulmonary hypertension. 14. The right ventricular systolic pressure, as measured by Doppler, is 52.45mmHg. SUPPORT TEAM ASSOC: Radha Rene RDCS
[2021-06-30 11:51] LABS: Glucose,Whole Blood 341 mg/dL (75-99)
[2021-06-30] MEDS: INSULIN ASPART (NovoLOG) 100 UNIT/ML VIAL SQ SCH ×3 (12:26→20:50)
[2021-06-30 13:03] LABS: Glucose,Whole Blood 365 mg/dL (75-99)
[2021-06-30 14:07] LABS: Glucose,Whole Blood 323 mg/dL (75-99)
[2021-06-30] MEDS ORDERED: RX INFO: IV CONTRAST WAS GIVEN 1 EACH MISC MISCELLANE PRN (14:22)
--- NOTE | 2021-06-30 14:46 | HP ---
HISTORY AND PHYSICAL CHIEF COMPLAINTS: High blood sugars and acute afw-AD-xibcujp-elevation myocardial infarction. HISTORY OF PRESENT ILLNESS: This 56-year-old gentleman with a past history of diabetes hypertension, was recently admitted with diabetic ketoacidosis. The patient is admitted with uncontrolled blood sugars more than 400. The patient also had features of diabetic ketoacidosis. The patient also had troponin elevated up to 3.820 indicating acute idl-MK-ezmpudp- elevation myocardial infarction. Cardiac cath report final report is pending at this time. No chest pain, no palpitations. A 2D echo, which was reviewed personally showed ejection fraction about 55-60 percent as well as multiple valvular abnormalities. PAST MEDICAL HISTORY: History of diabetes, hypertension, history of diabetic ketoacidosis. HOME MEDICATIONS: Include Crestor, Protonix, insulin. Dose, and other medications reviewed. ALLERGIES: None. FAMILY HISTORY: No history of heart disease or strokes in the family. SOCIAL HISTORY: No history of smoking. No alcohol. REVIEW OF SYSTEMS: 14-point review is negative except mentioned earlier. PHYSICAL EXAMINATION: Pulse 77, blood pressure 109/60, respiration 18. HEENT: Oral mucosa is dry. NECK is no jugular venous distention. No carotid bruit. No lymph node enlargement. CARDIOVASCULAR system: S1, S2. Ejection systolic murmur. RESPIRATION: Breath sounds diminished in the bases. A few scattered rhonchi. ABDOMEN: Soft, nontender. NERVOUS SYSTEM: No focal deficits. SKIN: No ulcers, no rashes and no bleeding. JOINTS: No active deforming arthropathy. LYMPHATICS: No lymph nodes palpable in the neck, axilla or groin. LABS: Sodium 132, potassium 4.1. WBC 14.1. ASSESSMENT: 1. Uncontrolled diabetes mellitus and acute diabetic ketoacidosis. 2. Acute not-DU-xiykvqn-elevation myocardial infarction. 3. Hypertension. RECOMMENDATIONS AND DISCUSSION: This 56-year-old gentleman presented with multiple complex medical issues, at this time, I recommend continue the current medications, optimize medical therapy. There was some issues with the patient's glucose apparently. I would recommend checking with hourly Accu-Cheks and as well as blood sugars also to ensure the accuracy of the blood sugar determinations. metalworker and Case Management also to work on the same thing and address home situation as well for better monitoring. Prognosis guarded. Further recommendations to follow. MMODL / IJN: [id number] /
--- NOTE | 2021-06-30 14:57 | CC ---
CARDIAC CATHETERIZATION REPORT INDICATION: Non ST-segment elevation ID. PROCEDURE NOTE: After obtaining informed consent, left heart catheterization, coronary angiogram are performed via the right femoral artery using standard [place] catheter. The patient tolerated the procedure well without any obvious immediate complications. A femoral angiogram was performed and Angio-Seal will be deployed for hemostasis. He received moderate conscious sedation. Total sedation time is 20 minutes. I initially attempted right radial access, but could not because of not a particularly strong radial pulse and I proceeded with the femoral catheterization. FINDINGS: Left ventricular hemodynamics is 12 mm there is no significant gradient across the the aortic valve was 16 mm. ANGIOGRAPHIC DATA: LEFT MAIN CORONARY ARTERY: Left main coronary artery is a normal-sized vessel and is free of stenosis. Divides into left anterior descending coronary artery and circumflex coronary artery. LEFT ANTERIOR DESCENDING CORONARY ARTERY: LAD and its branches are free of significant stenosis. CIRCUMFLEX CORONARY ARTERY: Circumflex coronary artery gives off a high OM branch that shows a moderate atherosclerotic plaque in its proximal portion. RIGHT CORONARY ARTERY: Right coronary artery is a codominant vessel and there is a moderate atherosclerotic plaque in its mid portion. CONCLUSIONS: 1. Moderate atherosclerotic plaque involving the OM branch in the right coronary artery. 2. Mild aortic stenosis. PLAN: I have will have Dr. Storm, the on-call anger control counselor, review the angiographic data and if necessary perform an FFR of the ramus intermedius at the high OM branch. MMODL / IJN: [id number] /
[2021-06-30 15:05] LABS: Glucose,Whole Blood 311 mg/dL (75-99)
--- NOTE | 2021-06-30 15:46 | XR ---
EXAMINATION TYPE: XR chest 1V portable DATE OF EXAM: 06/30/2021 HISTORY: Shortness of breath. COMPARISON: 06/25/2021 TECHNIQUE: Single view of the chest is submitted. FINDINGS: Demonstrated are scattered senescent parenchymal change. There is no evidence for focal infiltrate. The heart is stable. Hilar and mediastinal structures are within normal limits. Degenerative changes are seen of the dorsal spine. IMPRESSION: 1. Chronic changes without evidence for acute pulmonary disease.
[2021-06-30 15:59] LABS: Glucose,Whole Blood 275 mg/dL (75-99)
[2021-06-30 16:58] LABS: Glucose,Whole Blood 306 mg/dL (75-99)
[2021-06-30] MEDS: CHOLECALCIFEROL 125 MCG (5000 IU) TABLET PO SCH (17:29)
[2021-06-30] MEDS: PANTOPRAZOLE 40 MG TABLET PO SCH (17:40)
[2021-06-30] MEDS: SODIUM CHLORIDE 0.9% 1,000 ML IV SCH (17:48)
[2021-06-30 17:59] LABS: Glucose,Whole Blood 321 mg/dL (75-99)
[2021-06-30 20:00] LABS: Glucose,Whole Blood 381 mg/dL (75-99)
[2021-06-30] MEDS: INSULIN DETEMIR (LEVEMIR) 100 UNIT/ML SYR SQ SCH (20:51)
[2021-06-30 22:42] LABS: Glucose,Whole Blood 212 mg/dL (75-99)
[2021-07-01 02:04] LABS: Glucose,Whole Blood 140 mg/dL (75-99)
[2021-07-01] MEDS: SODIUM CHLORIDE 0.9% 1,000 ML IV SCH ×2 (02:09→17:18)
[2021-07-01 05:53] LABS: Glucose,Whole Blood 55 mg/dL (75-99)
[2021-07-01] MEDS: INSULIN ASPART (NovoLOG) 100 UNIT/ML VIAL SQ SCH ×4 (06:00→20:30)
[2021-07-01] MEDS ORDERED: DEXTROSE 50% SYRINGE 50 ML IVP ONE (06:09)
[2021-07-01 06:10] LABS: Glucose,Whole Blood 54 mg/dL (75-99)
[2021-07-01] MEDS: PANTOPRAZOLE 40 MG TABLET PO SCH ×2 (06:14→17:21)
[2021-07-01 06:27] LABS: Glucose,Whole Blood 153 mg/dL (75-99)
[2021-07-01 07:42] LABS: Basophils % (A) 0 %; Eosinophils # (A) 0.1 k/uL (0-0.7); Eosinophils % (A) 1 %; HCT 32.6 % (39.0-53.0); HGB 10.9 gm/dL (13.0-17.5); Lymphocytes # (A) 1.9 k/uL (1.0-4.8); Lymphocytes % (A) 19 %; MCH 31.4 pg (25.0-35.0); MCHC 33.4 g/dL (31.0-37.0); Mean Platelet Volume 7.7; Monocytes # (A) 0.7 k/uL (0-1.0); Monocytes % (A) 7 %; Neutrophils # (A) 6.9 k/uL (1.3-7.7); Neutrophils % (A) 71 %; Platelet Count 220 k/uL (150-450); RBC 3.47 m/uL (4.30-5.90); WBC 9.8 k/uL (3.8-10.6)
[2021-07-01 07:53] LABS: African American GFR (CKD) >90 (>60 ml/min/1.73 sqM); Anion Gap 7 mmol/L; Blood Urea Nitrogen 12 mg/dL (9-20); Calcium 8.4 mg/dL (8.4-10.2); Carbon Dioxide 20 mmol/L (22-30); Chloride 107 mmol/L (98-107); Glucose 144 mg/dL (74-99); Non-African American GFR(CKD) >90 (>60 ml/min/1.73 sqM); Potassium 3.6 mmol/L (3.5-5.1); Sodium 134 mmol/L (137-145)
[2021-07-01] MEDS: EZETIMIBE 10 MG TAB PO SCH (08:19)
[2021-07-01] MEDS: CHOLECALCIFEROL 125 MCG (5000 IU) TABLET PO SCH (08:19)
[2021-07-01] MEDS: METOPROLOL SUCCINATE (ER) 25 MG TAB.ER.24H PO SCH (08:19)
[2021-07-01] MEDS: ATORVASTATIN 40 MG TAB PO SCH (08:19)
[2021-07-01] MEDS: ASPIRIN 81 MG PO SCH (08:19)
[2021-07-01] MEDS ORDERED: NON FORMULARY DRUG (Rosuvastatin Calcium [Crestor] 40 MG Tablet) PO SCH (09:00)
[2021-07-01] MEDS ORDERED: ASPIRIN 325 MG TAB PO SCH (09:00)
[2021-07-01] MEDS ORDERED: ISOSORBIDE MONONITRATE ER 30 MG TAB.ER.24H PO STA (10:58)
--- NOTE | 2021-07-01 10:58 | P.PN ---
Subjective Progress Note Date: 07/01/21 56-year-old gentleman is admitted to hospital with severe uncontrolled diabetes and troponins. Her cardiac catheterization I performed he has borderline lesion in OM branch that we opted to treat medically and obtain an outpatient stress test and if it shows ischemia consider angioplasty. This morning patient is doing well and is free of cardiac symptoms. An echocardiogram shows normal LV systolic function with normal wall motion and dxhu-bs-afirhrxa iritic stenosis with vkbf-oa-sdfxrhet mitral regurgitation On exam comfortable at rest vital signs are stable chest exam reveals good air entry bilaterally heart exam reveals first and second heart sounds and ejection systolic murmur in the aortic area abdomen is soft exam extremities did not reveal any edema groin is free of bleeding bradycardia hematoma for pulses are intact Current medications include aspirin and Lipitor and Zetia Toprol insulin and we will discharge him home imdur Assessment and plan: Acute non-ST segment elevation [place] status post cath and medical therapy Vdlp-lk-icejetvx iritic stenosis Objective - Vital Signs Vital signs: Vital Signs Temp 98.5 F 07/01/21 04:00 Pulse 83 07/01/21 04:00 Resp 18 07/01/21 04:00 BP 110/65 07/01/21 04:00 Pulse Ox 95 07/01/21 08:27 Intake & Output 06/30/21 07/01/21 07/01/21 18:59 06:59 18:59 Intake Total 1360 240 118 Output Total 925 1275 Balance 435 -1035 118 Weight 81.647 kg 82 kg Intake: IV 400 Oral 960 240 118 Output: Urine 925 1275 Other: Voiding Method Indwelling Catheter - Labs CBC & Chem 7: 07/01/21 07:14 07/01/21 07:14 Labs: Abnormal Lab Results - Last 24 Hours (Table) 06/30/21 06/30/21 06/30/21 Range/Units 11:49 13:02 14:05 RBC (4.30-5.90) m/uL Hgb (13.0-17.5) gm/dL Hct (39.0-53.0) % Sodium (137-145) mmol/L Carbon Dioxide (22-30) mmol/L Glucose (74-99) mg/dL POC Glucose (mg/dL) 341 H 365 H 323 H (75-99) mg/dL 06/30/21 06/30/21 06/30/21 Range/Units 14:42 15:03 15:57 RBC (4.30-5.90) m/uL Hgb (13.0-17.5) gm/dL Hct (39.0-53.0) % Sodium (137-145) mmol/L Carbon Dioxide (22-30) mmol/L Glucose 306 H (74-99) mg/dL POC Glucose (mg/dL) 311 H 275 H (75-99) mg/dL 06/30/21 06/30/21 06/30/21 Range/Units 16:56 17:57 18:38 RBC (4.30-5.90) m/uL Hgb (13.0-17.5) gm/dL Hct (39.0-53.0) % Sodium (137-145) mmol/L Carbon Dioxide (22-30) mmol/L Glucose 373 H (74-99) mg/dL POC Glucose (mg/dL) 306 H 321 H (75-99) mg/dL 06/30/21 06/30/21 07/01/21 Range/Units 19:58 22:41 02:03 RBC (4.30-5.90) m/uL Hgb (13.0-17.5) gm/dL Hct (39.0-53.0) % Sodium (137-145) mmol/L Carbon Dioxide (22-30) mmol/L Glucose (74-99) mg/dL POC Glucose (mg/dL) 381 H 212 H 140 H (75-99) mg/dL 07/01/21 07/01/21 07/01/21 Range/Units 05:50 06:07 06:24 RBC (4.30-5.90) m/uL Hgb (13.0-17.5) gm/dL Hct (39.0-53.0) % Sodium (137-145) mmol/L Carbon Dioxide (22-30) mmol/L Glucose (74-99) mg/dL POC Glucose (mg/dL) 55 L 54 L 153 H (75-99) mg/dL 07/01/21 07/01/21 Range/Units 07:14 07:14 RBC 3.47 L (4.30-5.90) m/uL Hgb 10.9 L (13.0-17.5) gm/dL Hct 32.6 L (39.0-53.0) % Sodium 134 L (137-145) mmol/L Carbon Dioxide 20 L (22-30) mmol/L Glucose 144 H (74-99) mg/dL POC Glucose (mg/dL) (75-99) mg/dL Microbiology - Last 24 Hours (Table) 06/30/21 13:05 Urine Culture - Preliminary Urine,Catheterized
[2021-07-01 11:43] LABS: Glucose,Whole Blood 191 mg/dL (75-99)
[2021-07-01 16:40] LABS: Glucose,Whole Blood 251 mg/dL (75-99)
[2021-07-01] MEDS: TAMSULOSIN 0.4 MG CAP.ER.24H PO SCH (17:21)
[2021-07-01 17:30] LABS: Chol/HDL Ratio 5.23 Ratio; LDL Cholesterol,Calculated 81.1 mg/dL (0.0-131.0)
[2021-07-01 19:57] LABS: Glucose,Whole Blood 399 mg/dL (75-99)
--- NOTE | 2021-07-01 20:23 | PN ---
PROGRESS NOTE DATE OF SERVICE: 07/01/2021 This 56-year-old gentleman who was admitted with uncontrolled blood sugars and acute ccy-ET-rrailve-elevation myocardial infarction had cardiac catheterization which showed moderate atherosclerotic plaque in the ostium of the marginal branch and mild aortic stenosis. No chest pain. No palpitations. No fever. PHYSICAL EXAMINATION: Alert and oriented. Pulse 78, blood pressure 118/58, respiration 18. CHEST: Clear to auscultation. CARDIOVASCULAR SYSTEM: S1/S2. ABDOMEN: Soft. NERVOUS SYSTEM: No focal deficits. LABS: WBC 9.2, hemoglobin 10.9. ASSESSMENT: 1. Acute non ST elevation myocardial infarction status post cardiac catheterization showing moderate atherosclerotic plaque involving the OM branch of the RCA. 2. Mild aortic stenosis. 3. Diabetes mellitus type 2, uncontrolled. 4. Hypertension. RECOMMENDATION: Recommend to continue current management, continue symptomatic treatment. Continue with antiplatelet antihyperlipidemic agents. Closely with Cardiology. Prognosis guarded because of the above mentioned multiple medical issues. Further recommendations to follow. MMODL / IJN: [id number] /
[2021-07-01] MEDS: INSULIN DETEMIR (LEVEMIR) 100 UNIT/ML SYR SQ SCH (20:30)
[2021-07-02 04:16] LABS: Glucose,Whole Blood 184 mg/dL (75-99)
[2021-07-02] MEDS: SODIUM CHLORIDE 0.9% 1,000 ML IV SCH ×2 (06:22→20:18)
[2021-07-02 06:34] LABS: Glucose,Whole Blood 139 mg/dL (75-99)
[2021-07-02] MEDS: PANTOPRAZOLE 40 MG TABLET PO SCH ×2 (06:35→16:51)
[2021-07-02] MEDS: INSULIN ASPART (NovoLOG) 100 UNIT/ML VIAL SQ SCH ×4 (06:35→20:23)
[2021-07-02] MEDS: ASPIRIN 81 MG PO SCH (08:25)
[2021-07-02] MEDS: ATORVASTATIN 40 MG TAB PO SCH (08:25)
[2021-07-02] MEDS: METOPROLOL SUCCINATE (ER) 25 MG TAB.ER.24H PO SCH (08:26)
[2021-07-02] MEDS: CHOLECALCIFEROL 125 MCG (5000 IU) TABLET PO SCH (08:26)
[2021-07-02] MEDS: EZETIMIBE 10 MG TAB PO SCH (08:26)
[2021-07-02 11:41] LABS: Glucose,Whole Blood 281 mg/dL (75-99)
--- NOTE | 2021-07-02 12:45 | P.PN ---
Subjective Patient appears comfortable at rest free of chest pain or difficulty in breathing blood sugars are better controlled The plan is to discharge him home and arrange for an outpatient Lexiscan and if necessary consider revascularization of circumflex coronary artery On exam comfortable at rest afebrile artery disease 80 bpm blood pressures 1 for did not know 63 respirators 18 there is a jugular venous distention chest exam reveals good air entry bilaterally heart exam reveals first and second heart sounds no gallop no murmur noted rub abdomen is soft nontender exams extremities did not will any edema per for pulses are felt Assessment and plan: Non-ST segment elevation [place] status post cath and medical therapy Objective - Vital Signs Vital signs: Vital Signs Temp 98.5 F 07/02/21 11:35 Pulse 80 07/02/21 11:35 Resp 18 07/02/21 11:35 BP 129/63 07/02/21 11:35 Pulse Ox 93 L 07/02/21 11:35 Intake & Output 07/01/21 07/02/21 07/02/21 17:59 06:59 18:59 Intake Total 120 Output Total 250 Balance -130 Weight Intake: Oral 120 Output: Urine 250 Other: Voiding Method Urinal # Voids - Labs CBC & Chem 7: 07/01/21 07:14 07/01/21 07:14 Labs: Abnormal Lab Results - Last 24 Hours (Table) 07/01/21 07/01/21 07/01/21 Range/Units 07:14 11:42 16:39 POC Glucose (mg/dL) 191 H 251 H (75-99) mg/dL HDL Cholesterol 23.50 L (40.00-60.00) mg/dL 07/01/21 07/02/21 07/02/21 Range/Units 19:55 04:15 06:33 POC Glucose (mg/dL) 399 H 184 H 139 H (75-99) mg/dL HDL Cholesterol (40.00-60.00) mg/dL 07/02/21 Range/Units 11:40 POC Glucose (mg/dL) 281 H (75-99) mg/dL HDL Cholesterol (40.00-60.00) mg/dL Microbiology - Last 24 Hours (Table) 06/30/21 13:05 Urine Culture - Final Urine,Catheterized
[2021-07-02] MEDS: TAMSULOSIN 0.4 MG CAP.ER.24H PO SCH (16:51)
[2021-07-02 16:55] LABS: Glucose,Whole Blood 378 mg/dL (75-99)
--- NOTE | 2021-07-02 18:44 | PN ---
PROGRESS NOTE DATE OF SERVICE: 07/02/2021 This 56-year-old gentleman was admitted with acute tkp-HI-dudnukj-elevation myocardial infarction, also had uncontrolled diabetes mellitus. No chest pain. No palpitations. Medical treatment recommended. PHYSICAL EXAMINATION: Pulse is 78, blood pressure 120/64, respiration 18. Chest: Clear to auscultation. Cardiovascular: S1, S2. Abdomen: Soft. Nervous system: No focal deficits. LABS: Noted. Glucose 378. ASSESSMENT: 1. Acute eei-CQ-pzcdkxc-elevation myocardial infarction status post cardiac catheterization showing moderate atherosclerotic plaque involving the OM branch of the RCA. 2. Mild aortic stenosis. 3. Diabetes mellitus, type 2, uncontrolled with hyperglycemia. 4. Hypertension. RECOMMENDATIONS AND DISCUSSION: I recommend to continue current medications, symptomatic treatment. Continue with antiplatelet agents. We will increase the Lantus dose to 20 units and continue to monitor. Further recommendations to follow. MMODL / IJN: [id number] /
[2021-07-02 20:06] LABS: Glucose,Whole Blood 303 mg/dL (75-99)
[2021-07-02] MEDS ORDERED: INSULIN DETEMIR (LEVEMIR) 100 UNIT/ML SYR SQ SCH (21:00)
[2021-07-03 01:16] LABS: Glucose,Whole Blood 151 mg/dL (75-99)
[2021-07-03 07:12] LABS: Glucose,Whole Blood 104 mg/dL (75-99)
[2021-07-03 08:12] VITALS: BP 129/73; PULSE 77; RESP 17; TEMP 97.8
[2021-07-03] MEDS: INSULIN ASPART (NovoLOG) 100 UNIT/ML VIAL SQ SCH ×3 (08:12→17:36)
[2021-07-03] MEDS: ASPIRIN 81 MG PO SCH (08:43)
[2021-07-03] MEDS: METOPROLOL SUCCINATE (ER) 25 MG TAB.ER.24H PO SCH (08:44)
[2021-07-03] MEDS: EZETIMIBE 10 MG TAB PO SCH (08:44)
[2021-07-03] MEDS: CHOLECALCIFEROL 125 MCG (5000 IU) TABLET PO SCH (08:44)
[2021-07-03] MEDS: PANTOPRAZOLE 40 MG TABLET PO SCH (08:45)
[2021-07-03] MEDS: ATORVASTATIN 40 MG TAB PO SCH (08:45)
[2021-07-03] MEDS ORDERED: lisinopriL 5 MG TAB PO SCH (09:15)
--- NOTE | 2021-07-03 10:50 | P.PN ---
Subjective Progress Note Date: 07/03/21 HISTORY OF PRESENT ILLNESS: Patient examined this morning at the bedside. Patient denies chest pain or pressure. He denies shortness of breath. Patient underwent cardiac catheteriz ation during this hospitalization revealing moderate atherosclerotic plaque involving the OM branch and the right coronary artery and mild aortic stenosis.. Plan per Dr. Isabel's note yesterday is to arrange for outpatient Lexiscan and if necessary will consider revascularization of circumflex coronary artery. PHYSICAL EXAM: VITAL SIGNS: Reviewed. GENERAL: Well-developed in no acute distress. NECK: Supple. No JVD or thyromegaly LUNGS: Respirations even and unlabored. Lungs essentially clear to auscultation bilaterally. HEART: Regular rate and rhythm. S1 and S2 heard. EXTREMITIES: Normal range of motion. No clubbing or cyanosis. Peripheral pulses intact. No lower extremity edema ASSESSMENT: Non-STEMI, status post cardiac catheterization PLAN: Continue current cardiac medications Patient may be discharged home today from a cardiac standpoint Patient to follow up on an outpatient basis We will sign off. Please reconsult if needed. Nurse practitioner note has been reviewed by physician. Signing provider agrees with the documented findings, assessment, and plan of care. Objective - Vital Signs Vital signs: Vital Signs Temp 97.8 F 07/03/21 08:00 Pulse 77 07/03/21 08:00 Resp 17 07/03/21 08:00 BP 129/73 07/03/21 08:00 Pulse Ox 96 07/03/21 08:00 Intake & Output 07/02/21 07/03/21 07/03/21 18:59 06:59 18:59 Intake Total 480 840 Output Total 375 1250 Balance 105 -410 Intake: Oral 480 840 Output: Urine 375 1250 Other: Voiding Method Urinal Urinal # Voids 0 3 # Bowel Movements 0 0 - Labs CBC & Chem 7: 07/01/21 07:14 07/01/21 07:14 Labs: Abnormal Lab Results - Last 24 Hours (Table) 07/02/21 07/02/21 07/02/21 Range/Units 11:40 16:45 20:04 POC Glucose (mg/dL) 281 H 378 H 303 H (75-99) mg/dL 07/03/21 07/03/21 Range/Units 01:14 07:11 POC Glucose (mg/dL) 151 H 104 H (75-99) mg/dL
[2021-07-03 12:05] LABS: Glucose,Whole Blood 313 mg/dL (75-99)
[2021-07-03 17:30] LABS: Glucose,Whole Blood 478 mg/dL (75-99)
== END 2021-07-03 17:44 | disposition home or self-care (01) | DRG 280 ==
LOC: EC 23:11 → 3SCARD 06-30 02:13 → 4SSUR 07-02 21:42
PROVIDERS: ADMIT Hospitalist; ATTEND Hospitalist
PROC: 4A023N7 Measurement of Cardiac Sampling and Pressure, Left Heart, Percutaneous Approach (ICD-10-PCS; principal; 2021-06-30 10:05)
PROC: B2111ZZ Fluoroscopy of Multiple Coronary Arteries using Low Osmolar Contrast (ICD-10-PCS; principal; 2021-06-30 10:05)
DX: I21.3 ST elevation (STEMI) myocardial infarction of unspecified site (principal); E11.10 Type 2 diabetes mellitus with ketoacidosis without coma; E11.22 Type 2 diabetes mellitus with diabetic chronic kidney disease; N18.30 Chronic kidney disease, stage 3 unspecified; Z79.4 Long term (current) use of insulin; I12.9 Hypertensive chronic kidney disease with stage 1 through stage 4 chronic kidney disease, or unspecified chronic kidney disease; I35.0 Nonrheumatic aortic (valve) stenosis; E78.5 Hyperlipidemia, unspecified; I25.10 Atherosclerotic heart disease of native coronary artery without angina pectoris; Z79.82 Long term (current) use of aspirin; Z79.899 Other long term (current) drug therapy; Z96.41 Presence of insulin pump (external) (internal); Z90.89 Acquired absence of other organs; Z86.59 Personal history of other mental and behavioral disorders; Z98.890 Other specified postprocedural states; Z83.3 Family history of diabetes mellitus
CPT/HCPCS: 36415; 71045; 80048; 80053; 80061; 80320; 81001; 82009; 82947; 83605; 83735; 84484; 85025; 85730; 87086; 93005; 93306; 93458; 94760; 96365; 96366; 99285